=== PATIENT | male | born 1945 | race Caucasian/White ===

== ENCOUNTER 2018-09-07 21:45 | Observation (INO) | payer OTHER, SELFPAY ==
[2018-09-07] VITALS (24 sets, daily range): BP systolic 114–158; BP diastolic 63–79; PULSE 58–70; RESP 11–26; TEMP 36.8; O2SAT 95–98
--- NOTE | 2018-09-07 22:11 | ED.GENADUL_ITS ---
Discharge Plan Disposition Patient Disposition: [facility] INPATIENT Condition: Good Discharge Details Chief Complaint: Chest Pain Clinical Impression: Chest pain Reason For Visit: GERMAN Primary Care Provider: Jazzy Bhardwaj ED Provider: Jorge Rubio [place] Meds and New Rx's Prescriptions: No Action fluoxetine 20 MG capsule 20 mg PO QAM RF: 0 Prilosec OTC 20 MG tablet,delayed release (DR/EC) 20 mg PO DAILY RF: 0 atenolol 25 MG tablet 25 mg PO DAILY RF: 0 aspirin [Aspir-Low] 81 MG tablet,delayed release (DR/EC) 81 mg PO DAILY RF: 0 Medical Decision Making Patient presenting with left-sided chest pain that resolved with nitroglycerin. There was no radiation or associated symptoms. However, his HEART score is greater than 3 even without the initial troponin. He is currently pain-free. He took aspirin at home. His initial EKG is normal. Chest x-ray and laboratory studies ordered. Discussed with hospitalist for observation admission and stress testing tomorrow. Patient laboratory studies unremarkable other than a slight anemia and slight elevated glucose. First troponin is negative. Chest x-ray negative per my review as well as preliminary radiology read. Patient to be admitted for observation to the hospitalist overnight. Lab Data Lab results reviewed: Yes I reviewed the patient's lab results. ECG Data Attestation: I personally reviewed and interpreted this ECG (s) as follows: Interpretation: Normal sinus rhythm. Normal intervals and axis. Normal ST segments. HPI General Mode of arrival: EMS . Date/Time Provider Initiated Documentation: 09/07/18 22:02 . Limitations to Documentation: no limitations . Information obtained by: patient . HPI Narrative: Patient presents to ED by ambulance with complaint of chest pain. Patient describes a left-sided chest discomfort that started late this afternoon around 4 or 5:00. There is no radiation of the pain. There is no associated symptoms with the pain. He has no exertional component. He has been fine without any type of pain recently. He has no known coronary disease. He does have high blood pressure, diabetes, borderline cholesterol. He took aspirin and then took a second dose of aspirin but continued to have discomfort. By this evening he decided to call EMS since the pain did not resolve. He was given 3 sublingual nitroglycerin in total which resolved his pain completely. He arrives here pain-free without complaint. Related Data Home Medications Medication Instructions Recorded Confirmed aspirin [Aspir-Low] 81 mg PO DAILY 06/20/13 09/07/18 atenolol 25 mg PO DAILY 06/20/13 09/07/18 fluoxetine 20 mg PO QAM 06/20/13 09/07/18 omeprazole magnesium [PriLOSEC Otc] 20 mg PO DAILY 06/20/13 09/07/18 Allergies Allergy/AdvReac Type Severity Reaction Status Date / Time amoxicillin trihydrate Allergy Intermediate Hives Unverified 06/20/13 16:39 [From Augmentin] potassium clavulanate Allergy Intermediate Hives Unverified 06/20/13 16:39 [From Augmentin] lisinopril AdvReac Unverified 09/07/18 22:53 General Stated Complaint: Chest Pain LUCRECIA: 2 Review of Systems Constitutional Denies chills, Denies fever(s), Denies headache(s), Denies malaise and Denies weakness Eyes Denies change in vision, Denies eye discharge, Denies irritation and Denies eye pain ENT Denies headache(s) and Denies neck pain Cardiovascular Reports chest pain, Denies pedal edema, Denies edema, Denies leg edema, Denies lightheadedness, Denies palpitations and Denies dyspnea Respiratory Denies cough, Denies pain on inspiration and Denies dyspnea Gastrointestinal Denies abdominal pain, Denies diarrhea, Denies nausea and Denies vomiting Genitourinary Denies hematuria, Denies difficulty urinating, Denies dysuria, Denies urinary frequency and Denies urinary urgency Musculoskeletal Denies back pain, Denies myalgias, Denies arthralgias, Denies joint swelling, Denies neck pain and Denies numbness Integumentary/Breasts Denies erythema and Denies rash Neurologic Denies confusion, Denies headache(s), Denies numbness and Denies weakness Psychiatric Denies confusion Endocrine Denies palpitations [facility] Medical History Acquired deviated nasal septum (Chronic 09/24/14) Allergic rhinitis (Chronic 03/12/14) Allergic rhinitis due to other allergen (Chronic 04/09/14) Mass of neck (Resolved 08/28/13) Neoplasm of skin (Resolved 07/16/14) Postnasal drip (Chronic 03/12/14) Sensorineural hearing loss, bilateral (Chronic 07/08/15) Thyroid nodule (Inactive 08/28/13) Diabetes mellitus (Chronic) HTN (hypertension) (Chronic) Allergic rhinitis due to pollen (Inactive) Surgical History S/P cholecystectomy (Inactive) Social History Smoking/Tobacco Use Status: Never Exam Const General: cooperative, comfortable and no acute distress Orientation: alert and oriented x3 HENMT Head: normocephalic and atraumatic Mouth: moist mucous membranes Eyes Conjunctivae: conjunctivae normal Pupils: PERRL EOM: EOM intact bilaterally Neck Neck: full ROM, no lymphadenopathy, trachea midline and supple Chest Chest: normal palpation of entire chest wall Resp Effort & Inspection: normal respiratory effort Auscultation: clear to auscultation bilaterally Cardio Rate: regular rate Rhythm: regular rhythm Heart Sounds: S1 normal and S2 normal Pulses: normal peripheral pulses GI Inspection: non-distended Palpation: soft, not firm, no guarding and nontender Skin General skin exam: no erythema Rashes: no rashes Trauma: no lacerations or abrasions Other: warm and dry Neuro General: alert, oriented x3, no focal motor deficits and CN's II-XI intact bi laterally Cognition: normal cognition Speech: speech normal Sensory Exam: no sensory deficits noted Extrem General: normal to inspection, full ROM and no clubbing, cyanosis or edema Psych Appearance: grossly normal Mental Status: mental status grossly normal Affect: normal affect Attitude: cooperative Course Vital Signs Temperature 98.3 F 09/07/18 21:47 Pulse 65 09/07/18 21:47 Respiratory Rate 16 09/07/18 21:47 Blood Pressure 158/79 H 09/07/18 21:47 Pulse Oximetry 95 09/07/18 21:47 Temperature 98.3 F 09/07/18 21:47 Temperature Source Skin 09/07/18 21:47 Pulse 65 09/07/18 21:47 Respiratory Rate 16 09/07/18 21:47 Respiratory Effort Non-Labored 09/07/18 21:49 Blood Pressure 158/79 H 09/07/18 21:47 Blood Pressure Position Sitting 09/07/18 21:47 Pulse Oximetry 95 09/07/18 21:47 Oxygen Delivery Method Room Air 09/07/18 21:47 Oxygen Flow Rate 0 09/07/18 21:47
--- NOTE | 2018-09-07 22:11 | DI.RAD_ITS ---
SYMPTOM/DIAGNOSIS: CHEST PAIN PA AND LATERAL CHEST: The heart is normal in size. The lungs are clear. The mediastinal structures and pleura appear intact. CONCLUSION: Normal chest. No evidence of acute cardiopulmonary disease.
[2018-09-07 22:26] LABS: Abs Immature Grans 0.01 k/cumm (0.0-0.09); Absolute Basophil Count 0.03 k/cumm (0.0-0.2); Absolute Lymphocyte Count 2.71 k/cumm (1.2-3.4); Absolute Monocyte Count 0.73 k/cumm (0.11-0.7); Absolute Neutrophil Count 2.34 k/cumm (1.2-6.7); Basophils % 0.5; Eosinophils % 6.4; HGB 13.3 g/dL (13.5-17.5); Immature Grans % 0.2; Lymphocytes % 43.6; Mean Corp. HGB Concentration 34.1 g/dL (32.0-36.0); Mean Corpuscular Hemoglobin 30.6 pg (27.0-33.0); Mean Corpuscular Volume 89.9 fL (80-95); Mean Platelet Volume 9.3 fL (8.0-11.0); Monocytes % 11.7; Neutrophils % 37.6; Platelet Count 246 x1000/uL (130-400); RBC 4.34 m/cumm (4.50-6.00); RBC Distribution Width 12.8 % (11.8-14.1); White Blood Cell Count 6.22 k/cumm (4.4-10.8)
[2018-09-07 23:11] LABS: ALT 30 U/L (12-78); AST 17 U/L (15-37); Albumin 3.3 g/dL (3.4-5.0); Alkaline Phosphatase 102 U/L (46-116); Anion Gap 9.1 mmol/L (3-11); BUN 14 mg/dL (7-18); Bilirubin, Total 0.3 mg/dL (0.2-1.0); CO2 26.9 mmol/L (21.0-32.0); CREATININE 1.17 mg/dL (0.70-1.30); Calcium 8.5 mg/dL (8.5-10.1); Chloride 102 mmol/L (98-107); Glucose 158 mg/dL (70-100); Magnesium 1.9 mg/dL (1.8-2.4); Potassium 3.9 mmol/L (3.5-5.1); Sodium 138 mmol/L (136-145); Total Protein 6.7 g/dL (6.4-8.2); Troponin I 0.03 ng/mL (0.00-0.06)
--- NOTE | 2018-09-07 23:18 | DI.VRAD_ITS ---
EXAM: XR Chest, 2 Views EXAM DATE/TIME: 09/07/2018 10:23 PM CLINICAL HISTORY: 73 years old, male; Pain; Chest pain TECHNIQUE: XR of the chest, 2 views. COMPARISON: US AAA SCREENING 12/04/2016 6:12 PM FINDINGS: Lungs: Unremarkable. No consolidation. Pleural space: Unremarkable. No pleural effusion. No pneumothorax. Heart/Mediastinum: Unremarkable. No cardiomegaly. Upper abdomen: Prior cholecystectomy. Bones/joints: Thoracolumbar dextroscoliosis. IMPRESSION: No active pulmonary disease. Dictated and Authenticated by: Pritesh aSnz MD. Ordering:LAURA Patel MD
--- NOTE | 2018-09-07 23:50 | HPE_ITS ---
Date of service: 09/07/18 Time of Service: 23:35 Assessment and Plan (1) Chest pain: Current visit: Yes Status: Acute Chest pain occurred at rest. The chest pain resolved with 1 sublingual nitro given by EMS. Given his risk factors of hypertension diabetes will admit to observation status and trend his troponins. Overall reassuring EKG and initial troponin. PRN sublingual nitro (2) Diabetes mellitus: Current visit: Yes Status: Chronic New diagnosis of diabetes, currently on no meds. Will check fingerstick blood sugars and provide correction coverage. (3) HTN (hypertension): Current visit: Yes Status: Chronic Blood pressure is currently stable continue present meds (4) Obstructive sleep apnea: Current visit: Yes Status: Chronic On nocturnal CPAP. Will provide CPAP at 12 cm of water. (5) Discharge planning issues: Current visit: Yes Status: Acute Admit to observation status. He is a full code. History of Present Illness Chief Complaint: Chest pain rule out NH Narrative: This is a 73-year-old man who developed some substernal chest pain around 5 PM this evening. It was just prior to his evening meal he went on to have his supper and the pain did not get better. He tried taking 2 baby aspirin without any relief. At around 8 PM he took 2 more baby aspirin again with no relief. He announced to his at around 9 PM that he did not feel well and it was suggested he take an ambulance to the emergency room. In the emergency room he was pain-free, his EKG showed no acute changes, his initial troponin was negative. He is admitted for further rule out of NH. He has no prior history of coronary disease. He was recently diagnosed with type 2 diabetes. He has a history of hypercholesterolemia. Review of Systems Review of Systems Generally healthy and active, no history of coronary disease Constitutional Denies excessive sweating, Denies frequent falls and Denies headache(s) ENT Denies headache(s) and Denies throat swelling Cardiovascular Reports chest pain (No prior history prior to tonight), Denies edema, Denies dyspnea, Denies dyspnea on exertion and Denies orthopnea Respiratory Denies dyspnea and Denies dyspnea on exertion Gastrointestinal Denies diarrhea, Denies nausea and Denies vomiting Genitourinary Denies urinary frequency and Denies urinary incontinence Musculoskeletal Denies back pain and Denies deformity Integumentary/Breasts Denies rash, Denies sores and Denies wounds Neurologic Denies confusion, Denies frequent falls and Denies headache(s) Psychiatric Denies confusion, Denies depression and Denies suicidal ideation Endocrine Denies excessive sweating Hematologic/Lymphatic Denies easy bleeding and Denies easy bruising Allergic/Immunologic Denies urticaria and Denies throat swelling [facility] Medical History Chest pain (Acute) Obstructive sleep apnea (Chronic) Diabetes mellitus (Chronic) HTN (hypertension) (Chronic) Acquired deviated nasal septum (Chronic 09/24/14) Allergic rhinitis (Chronic 03/12/14) Allergic rhinitis due to other allergen (Chronic 04/09/14) Mass of neck (Resolved 08/28/13) Neoplasm of skin (Resolved 07/16/14) Postnasal drip (Chronic 03/12/14) Sensorineural hearing loss, bilateral (Chronic 07/08/15) Thyroid nodule (Inactive 08/28/13) Allergic rhinitis due to pollen (Inactive) Surgical History H/O umbilical hernia repair (Acute) History of tonsillectomy (Chronic) S/P cholecystectomy (Inactive) Social History household members: spouse current occupational status: retired current occupation: Part-time work at a [email or web address] station Smoking/Tobacco Use Status: Never alcohol intake: current alcohol intake frequency: holidays/special occasions only substance use type: does not use Meds Home Medications Medication Instructions Recorded Confirmed Type aspirin [Aspir-Low] 81 mg PO DAILY 06/20/13 09/07/18 History atenolol 25 mg PO DAILY 06/20/13 09/07/18 History fluoxetine 20 mg PO QAM 06/20/13 09/07/18 History omeprazole magnesium [PriLOSEC Otc] 20 mg PO DAILY 06/20/13 09/07/18 History Allergies Allergy/AdvReac Type Severity Reaction Status Date / Time amoxicillin trihydrate Allergy Intermediate Hives Unverified 06/20/13 16:39 [From Augmentin] potassium clavulanate Allergy Intermediate Hives Unverified 06/20/13 16:39 [From Augmentin] lisinopril AdvReac Unverified 09/07/18 22:53 Exam Const General: cooperative, comfortable, no acute distress, well developed and well groomed Orientation: alert, awake and oriented x3 HENMT Head: normal to inspection Ears: hearing grossly abnormal bilaterally (Bilateral sensorineural hearing deficits) General nose exam: external nose normal Face and sinus: face symmetric Mouth: oropharynx normal Eyes General: appearance normal, both eyes and all related structures Neck Neck: normal visual inspection and no JVD Thyroid: symmetrical Carotids: normal carotid upstroke Lymphatic: no lymphadenopathy noted Chest Chest: normal inspection of the chest Resp Effort & Inspection: normal respiratory effort Auscultation: clear to auscultation bilaterally Cardio Jugular venous pressure: no JVD Rate: regular rate Rhythm: regular rhythm Heart Sounds: S1 normal, S2 normal and no murmurs GI Inspection: normal to inspection Palpation: soft, no hepatosplenomegaly and nontender Back/Spine/Pelvis Back: no CVA tenderness Cervical Spine: normal cervical lordosis Thoracic/Lumbar Spine: thoracic and lumbar spine normal to inspection Skin General skin exam: no rashes or lesions noted Wounds: no wounds Neuro General: alert, awake, oriented x3, moves all extremities and no focal motor deficits Cranial Nerves: CN's II-XI intact bilaterally Cognition: normal cognition Speech: speech normal Extrem General: normal to inspection and no clubbing, cyanosis or edema Psych Appearance: grossly normal Mental Status: mental status grossly normal Speech and Movement: speech and movement normal Mood: congruent mood Affect: normal affect Attitude: cooperative Thought Process: normal Thought Content: normal Insight: insight good Results Imaging Chest x-ray: image reviewed (Appears normal) EKG: image reviewed (Sinus rhythm at [address] to T changes biphasic T wave in 3) Labs : 09/07/18 22:05 09/07/18 22:05 Laboratory Results - last 24 hr 09/07/18 09/07/18 22:05 22:05 WBC 6.22 RBC 4.34 L Hgb 13.3 L Hct 39.0 L MCV 89.9 MCH 30.6 MCHC 34.1 RDW 12.8 Plt Count 246 MPV 9.3 Immature Gran % 0.2 Neutrophils % 37.6 Lymphocytes % 43.6 Monocytes % 11.7 Eosinophils % 6.4 Basophils % 0.5 Absolute Neutrophils 2.34 Absolute Lymphocytes 2.71 Absolute Monocytes 0.73 H Absolute Eosinophils 0.40 Absolute Basophils 0.03 Sodium 138 Potassium 3.9 Chloride 102 Carbon Dioxide 26.9 Anion Gap 9.1 BUN 14 Creatinine 1.17 Estimated GFR/1.73 m2 >= 60.00 Glucose 158 H Calcium 8.5 Magnesium 1.9 Total Bilirubin 0.3 AST 17 ALT 30 Alkaline Phosphatase 102 Troponin I 0.03 Total Protein 6.7 Albumin 3.3 L Last Vital Signs Temp 36.8 C 09/07/18 21:47 Pulse 68 09/07/18 22:45 Resp 16 09/07/18 22:55 BP 122/71 09/07/18 22:45 Pulse Ox 97 09/07/18 22:45
[2018-09-08] VITALS (16 sets, daily range): BP systolic 119–157; BP diastolic 64–87; PULSE 59–76; RESP 14–18; TEMP 36.8–37.9; O2SAT 94–97
[2018-09-08 02:57] LABS: Troponin I 0.02 ng/mL (0.00-0.06)
[2018-09-08 07:07] LABS: Abs Immature Grans 0.01 k/cumm (0.0-0.09); Absolute Basophil Count 0.03 k/cumm (0.0-0.2); Absolute Eosinophil Count 0.14 k/cumm (0.0-0.7); Absolute Lymphocyte Count 2.23 k/cumm (1.2-3.4); Absolute Neutrophil Count 4.82 k/cumm (1.2-6.7); Basophils % 0.4; Eosinophils % 1.8; HCT 39.4 % (40.0-50.0); HGB 13.4 g/dL (13.5-17.5); Immature Grans % 0.1; Lymphocytes % 28.1; Mean Corpuscular Hemoglobin 30.7 pg (27.0-33.0); Mean Corpuscular Volume 90.4 fL (80-95); Mean Platelet Volume 9.6 fL (8.0-11.0); Monocytes % 8.8; Neutrophils % 60.8; Platelet Count 231 x1000/uL (130-400); RBC 4.36 m/cumm (4.50-6.00); RBC Distribution Width 12.9 % (11.8-14.1); White Blood Cell Count 7.93 k/cumm (4.4-10.8)
[2018-09-08 07:21] LABS: Anion Gap 9.6 mmol/L (3-11); BUN 16 mg/dL (7-18); CO2 26.4 mmol/L (21.0-32.0); CREATININE 0.88 mg/dL (0.70-1.30); Calcium 8.6 mg/dL (8.5-10.1); Chloride 104 mmol/L (98-107); Glucose 133 mg/dL (70-100); Sodium 140 mmol/L (136-145)
[2018-09-08 07:30] LABS: Troponin I 0.02 ng/mL (0.00-0.06)
[2018-09-08 07:37] LABS: Hemoglobin A1C 6.9 % (4.5-6.2)
[2018-09-08] MEDS: Enoxaparin 40 MG/0.4 ML SYR SC (09:23)
[2018-09-08] MEDS: Aspirin E.C. 81 MG TABEC PO (09:24)
[2018-09-08] MEDS: Atenolol 25 MG TAB PO (09:24)
[2018-09-08] MEDS: FLUoxetine 20 MG CAP PO (09:24)
[2018-09-08] MEDS: Omeprazole 20 MG CAPCR PO (09:25)
[2018-09-08] MEDS: Acetaminophen 325 MG TAB PO (09:32)
[2018-09-08] MEDS: Mylanta Suspension 30 ML CUP PO (10:13)
--- NOTE | 2018-09-08 12:00 | HOME_ITS ---
Home Ventilator Equipment Home care company [employer] Reason: Obstructive Sleep Apnea Make: ResMed Model: AirSense 10 Mask type: Face mask Mask size: Large Mode: Settings: CPAP 12 Oxygen bleed in (lpm): 0 Condition: Date last checked: Year of last sleep study: Compliance Comments:
--- NOTE | 2018-09-08 13:05 | W.PM.PROGNOT ---
Date of Service Date of service: 09/08/18 Time of Service: 13:05 Assessment and Plan (1) Chest pain: Current visit: Yes Status: Acute Troponins negative. EKG normal, without ST changes. Given history of DM and HTN with chest discomfort, plan to stress test tomorrow to further rule out CAD. Lipid panel with morning labs. (2) Diabetes mellitus: Current visit: Yes Status: Chronic Blood sugar has been in acceptable range. Continue short acting insulin per sliding scale. Continue to hold metfromin while hospitalized. (3) HTN (hypertension): Current visit: Yes Status: Chronic Continue home dose BB, hold for stress test. Continue to monitor blood pressure. (4) DVT prophylaxis: Current visit: Yes Status: Acute Subcutaneous lovenox. (5) Discharge planning issues: Current visit: Yes Status: Acute He is a FULL code. This case was discussed with Dr. Boucher who is in agreement. Subjective Interval history since last seen: Mr. Nj is a very pleasant 73 year old man with a past medical history significant for HTN, non-insulin dependent diabetes and SANDRO, who presented to the ED yesterday via EMS with reports of chest pain that was relieved by nitro. His troponins have been negative. EKG showed normal sinus rhythm, normal intervals and axis, normal ST segments. This morning he reports intermittent discomfort in his left chest. He also notes that his anxiety level is high. He has no family history of UT, he has never been a smoker, he is fairly active around the house but does not regularly exercise. He denies any shortness of breath, cough, or wheeze. He did fall yesterday, onto his left shoulder, although he cannot reproduce the chest discomfort with palpation or manipulation of his shoulder/arm. Given his risk factors, including HTN and DM, will plan to stress test him tomorrow. Exam Narrative Exam Narrative: General: Awake, alert and oriented. Pleasant and cooperative, sitting in bed in no acute distress. HEENT: normocephalic, atraumatic, pupils equal and round, mucous membranes moist. Neck: supple, no JVD. Cardiovascular: heart has regular rate and rhythm, no murmur, gallop or rub. Respiratory: respirations even and unlabored, lungs clear to auscultation throught. GI: abdomen soft, nontender, nondistended, with normoactive bowel sounds throughout. Extremities: well perfused without clubbing, cyanosis or edema. Objective Objective Clinical Data: Abnormal lab results 09/07/18 09/07/18 09/08/18 Range/Units 22:05 22:05 06:20 RBC 4.34 L (4.50-6.00) m/cumm Hgb 13.3 L (13.5-17.5) g/dL Hct 39.0 L (40.0-50.0) % Absolute Monocytes 0.73 H (0.11-0.7) k/cumm Glucose 158 H 133 H (70-100) mg/dL Hemoglobin A1c (4.5-6.2) % Albumin 3.3 L (3.4-5.0) g/dL 09/08/18 09/08/18 Range/Units 06:20 06:20 RBC 4.36 L (4.50-6.00) m/cumm Hgb 13.4 L (13.5-17.5) g/dL Hct 39.4 L (40.0-50.0) % Absolute Monocytes (0.11-0.7) k/cumm Glucose (70-100) mg/dL Hemoglobin A1c 6.9 H (4.5-6.2) % Albumin (3.4-5.0) g/dL Vital Signs Temperature 37.2 C 09/08/18 11:47 Temperature Source Tympanic 09/08/18 11:47 Pulse 69 09/08/18 11:47 Pulse Rhythm Regular 09/08/18 04:06 Pulse 69 09/08/18 00:01 Respiratory Rate 16 09/08/18 11:47 Respiratory Effort 09/08/18 04:06 Respiratory Depth Normal 09/08/18 04:06 Respiratory Pattern Normal 09/08/18 04:06 Blood Pressure 157/79 H 09/08/18 11:47 Blood Pressure Mean 76 09/08/18 00:00 Blood Pressure Position Sitting 09/07/18 21:47 Pulse Oximetry 97 09/08/18 11:47 Oxygen Delivery Method Room Air 09/08/18 11:47 Oxygen Flow Rate 0 09/08/18 11:47 Pain Level 1 09/08/18 09:32 Intake & Output 09/07/18 09/08/18 09/08/18 23:59 11:59 23:59 Intake Total 480 / 480 Output Total 100 / 100 Balance 380 / 380 Weight 70.307 kg 70.307 kg Intake: Oral 480 / 480 Output: Urine 100 / 100 Other: Urine Color Yellow Urine Appearance Clear Urine Odor Normal Voiding Methods Urinal Laboratory Results WBC 7.93 k/cumm (4.4-10.8) 09/08/18 06:20 RBC 4.36 m/cumm (4.50-6.00) L 09/08/18 06:20 Hgb 13.4 g/dL (13.5-17.5) L 09/08/18 06:20 Hct 39.4 % (40.0-50.0) L 09/08/18 06:20 MCV 90.4 fL (80-95) 09/08/18 06:20 MCH 30.7 pg (27.0-33.0) 09/08/18 06:20 MCHC 34.0 g/dL (32.0-36.0) 09/08/18 06:20 RDW 12.9 % (11.8-14.1) 09/08/18 06:20 Plt Count 231 x1000/uL (130-400) 09/08/18 06:20 MPV 9.6 fL (8.0-11.0) 09/08/18 06:20 Immature Gran % 0.1 09/08/18 06:20 Neutrophils % 60.8 09/08/18 06:20 Lymphocytes % 28.1 09/08/18 06:20 Monocytes % 8.8 09/08/18 06:20 Eosinophils % 1.8 09/08/18 06:20 Basophils % 0.4 09/08/18 06:20 Absolute Neutrophils 4.82 k/cumm (1.2-6.7) 09/08/18 06:20 Absolute Lymphocytes 2.23 k/cumm (1.2-3.4) 09/08/18 06:20 Absolute Monocytes 0.70 k/cumm (0.11-0.7) 09/08/18 06:20 Absolute Eosinophils 0.14 k/cumm (0.0-0.7) 09/08/18 06:20 Absolute Basophils 0.03 k/cumm (0.0-0.2) 09/08/18 06:20 Sodium 140 mmol/L (136-145) 09/08/18 06:20 Potassium 4.0 mmol/L (3.5-5.1) 09/08/18 06:20 Chloride 104 mmol/L (98-107) 09/08/18 06:20 Carbon Dioxide 26.4 mmol/L (21.0-32.0) 09/08/18 06:20 Anion Gap 9.6 mmol/L (3-11) 09/08/18 06:20 BUN 16 mg/dL (7-18) 09/08/18 06:20 Creatinine 0.88 mg/dL (0.70-1.30) 09/08/18 06:20 Estimated GFR/1.73 m2 >= 60.00 (mL/min/1.73m2) 09/08/18 06:20 Glucose 133 mg/dL (70-100) H 09/08/18 06:20 Hemoglobin A1c 6.9 % (4.5-6.2) H 09/08/18 06:20 Calcium 8.6 mg/dL (8.5-10.1) 09/08/18 06:20 Magnesium 1.9 mg/dL (1.8-2.4) 09/07/18 22:05 Total Bilirubin 0.3 mg/dL (0.2-1.0) 09/07/18 22:05 AST 17 U/L (15-37) 09/07/18 22:05 ALT 30 U/L (12-78) 09/07/18 22:05 Alkaline Phosphatase 102 U/L (46-116) 09/07/18 22:05 Troponin I 0.02 ng/mL (0.00-0.06) 09/08/18 06:20 Total Protein 6.7 g/dL (6.4-8.2) 09/07/18 22:05 Albumin 3.3 g/dL (3.4-5.0) L 09/07/18 22:05
--- NOTE | 2018-09-08 14:04 | CHAPLAIN ---
Jorge was resting in bed when I visited. He remembered me, and other staff, from when his was a patient here, over a year ago after having a stroke. Jorge said it has been difficult to tell what his chest discomfort is about, but he is having several tests today. He had similar pain like this 30 years ago, he said. He wondered if some anxiety could be a cause. We talked about how connected our bodies are our emotions, even when we don't realize it.
--- NOTE | 2018-09-08 15:05 | PHARADMIT ---
Admission Pharmacy Clinical Review chest pain, rule out AR Code Status Full Code Current Weight 70.307 kg Renally Cleared and Narrow Therapeutic Index Meds Crcl ~66.00 mL/min current meds okay QTc Value / Action Taken QTc 414 BP Control, Fever BP 157/79 afebrile Electrolytes reviewed within normal limits DVT Prophylaxis enoxaparin Opiate Usage / Scheduled Bowel Regimen Ordered no/prn Plt/SCr for Heparin / Enoxaparin plt 231 SCr 0.88 INR for Warfarin n/a H/H stable, WBC/Bands h/h 13.4/39.4 wbc 7.93 Antibiotic appropriateness n/a Cultures and Sensitivities n/a Surgical ABX d/c within 24 hr n/a DM control / Insulin Dosing BG 133 A1c 6.9 sliding scale aspart Heart Failure (Check EF%) (NILO's, B-Block, Diuretics) atenolol (on hold due to stress test) IV to PO Switch n/a Home Meds Reviewed yes Home Meds Not Ordered all are ordered Comments stress test tomorrow
--- NOTE | 2018-09-08 17:04 | PDOC.ERCMIN ---
Care Management Initial Assess REASON FOR HOSPITALIZATION:: Chest Pain R/O AR PAST MEDICAL HISTORY/PAST SURGICAL HISTORY:: Chest pain, Obstructive sleep apnea, Diabetes mellitus, HTN, Acquired deviated nasal septum, Allergic rhinitis, Allergic rhinitis due to other allergen, Mass of neck, Neoplasm of skin, Postnasal drip, Sensorineural hearing loss, bilateral, Thyroid nodule, Allergic rhinitis due to pollen PREVIOUS FUNCTIONAL STATUS/SOCIAL/FAMILY SUPPORTS:: Jorge reports moving to [place] with his after retiring from the [employer] in [place]. He states no one was retiring here, so we did Shortly therafter, his two sons and daughter followed and had eight grandchildren in a short amount of time; per Jorge's report. The couple have resdied in [place] for about ten years after relocating from their original landing place in [place] in 1995. Jorge reports a healthy support network of family and friends and shares enjoying his fpc years very much. He is independent with all ADLs in the community. The couple enjoys visiting his KATHY in [place] during the winter monthes. CURRENT FUNCTIONAL STATUS:: Jorge is lying in bed when CM meets with him; he is forthcoming with information and pleasant in interaction. ADVANCE DIRECTIVES:: On file at [facility]. Has patient been provided with information about the portal?: Yes Did the patient sign up for the portal?: Yes ([email or web address] CODE STATUS:: Full Code INSURANCE COVERAGE / FINANCIAL ISSUES:: [facility] CURRENT HOME/COMMUNITY SERVICES/EQUIPMENT:: CPAP machine-[employer] PRIMARY CARE PHYSICIAN:: Hayder Bhardwaj POTENTIAL DISCHARGE NEEDS:: Follow up appointments. PATIENT/FAMILY EDUCATION NEEDS:: Review of instructions, discuss Ask Me Three self care needs upon discharge. ANTICIPATED BARRIERS TO DISCHARGE:: None identified at this time. TRANSPORTATION:: Via private vehicle with his . PLAN:: Jorge will continue to be monitored at this time, he will have a stress test to inform discharge planning needs. CM will continue to follow.
--- NOTE | 2018-09-08 17:29 | INITIAL_ITS ---
Care Management Initial Assess REASON FOR HOSPITALIZATION:: Chest Pain R/O TN PAST MEDICAL HISTORY/PAST SURGICAL HISTORY:: Chest pain, Obstructive sleep apnea, Diabetes mellitus, HTN, Acquired deviated nasal septum, Allergic rhinitis, Allergic rhinitis due to other allergen, Mass of neck, Neoplasm of skin, Postnasal drip, Sensorineural hearing loss, bilateral, Thyroid nodule, Allergic rhinitis due to pollen PREVIOUS FUNCTIONAL STATUS/SOCIAL/FAMILY SUPPORTS:: Jorge reports moving to [place] with his after retiring from the [employer] in [place]. He states no one was retiring here, so we did Shortly therafter, his two sons and daughter followed and had eight grandchildren in a short amount of time; per Jorge's report. The couple have resdied in [place] for about ten years after relocating from their original landing place in [place] in 1995. Jorge reports a healthy support network of family and friends and shares enjoying his intermediate years very much. He is independent with all ADLs in the community. The couple enjoys visiting his KATHY in [place] during the winter monthes. CURRENT FUNCTIONAL STATUS:: Jorge is lying in bed when CM meets with him; he is forthcoming with information and pleasant in interaction. ADVANCE DIRECTIVES:: On file at [facility]. Has patient been provided with information about the portal?: Yes Did the patient sign up for the portal?: Yes ([email or web address] CODE STATUS:: Full Code INSURANCE COVERAGE / FINANCIAL ISSUES:: [facility] CURRENT HOME/COMMUNITY SERVICES/EQUIPMENT:: CPAP machine-[employer]ila PRIMARY CARE PHYSICIAN:: Hayder Bhardwaj POTENTIAL DISCHARGE NEEDS:: Follow up appointments. PATIENT/FAMILY EDUCATION NEEDS:: Review of instructions, discuss Ask Me Three self care needs upon discharge. ANTICIPATED BARRIERS TO DISCHARGE:: None identified at this time. TRANSPORTATION:: Via private vehicle with his . PLAN:: Jorge will continue to be monitored at this time, he will have a stress test to inform discharge planning needs. CM will continue to follow.
[2018-09-09 03:45] VITALS: BP 140/75; PULSE 78; RESP 18; TEMP 37; O2SAT 97
[2018-09-09 06:13] LABS: Cholesterol 207 mg/dL (50-200); HDL Cholesterol 43 mg/dL (40-60); LDL CHOLESTEROL 138 mg/dL (<100); Triglyceride 138 mg/dL (30-150)
[2018-09-09 07:01] VITALS: PULSE 64
[2018-09-09 07:40] VITALS: BP 156/80; PULSE 71; RESP 18; TEMP 36.2; O2SAT 96
[2018-09-09] MEDS: FLUoxetine 20 MG CAP PO (08:33)
[2018-09-09] MEDS: Enoxaparin 40 MG/0.4 ML SYR SC (08:33)
[2018-09-09] MEDS: Aspirin E.C. 81 MG TABEC PO (08:33)
[2018-09-09] MEDS: Omeprazole 20 MG CAPCR PO ×2 (08:33→11:24)
[2018-09-09 11:35] VITALS: BP 165/78; PULSE 76; RESP 18; TEMP 36.6; O2SAT 96
--- NOTE | 2018-09-09 11:57 | W.PM.DS.N ---
Date of service: 09/09/18 Time of Service: 11:57 DS: Diagnosis Discharge Diagnosis (1) Chest pain: Status: Acute (2) Diabetes mellitus: Status: Chronic (3) HTN (hypertension): Status: Chronic Discharge Plan Disposition Patient Disposition: HOME Condition: Good Discharge Details Reason For Visit: CHEST PAIN RULE OUT MA Admit Date/Time: 09/07/18 23:26 Admit Provider: Kris Roberts Attending Provider: Kris Roberts Primary Care Provider: Jazzy Bhardwaj [facility] Hospital Course: Mr. Nj is a very pleasant 73 year old man with a past medical history significant for HTN, non-insulin dependent diabetes, hyperlipidemia and SANDRO (wears CPAP), who presented to the ED on 09/07/18 with reports of chest pain. He took 2 Aspirin 81 mg when it first began, then took 2 more Aspirin 81 mg a few hours later with no relief. At that point EMS was notified and he was transported to the ED. He received nitroglycerin en route to the ED which provided relief. He remained pain-free while in the ED. His troponins were 0.03-0.02-0.02. His EKG revealed NSR, normal intervals and axis. Normal ST segments as interpreted by Dr. Rubio. Given his risk factors, including HTN, DM (hgb A1c 6.9), hyperlipidemia he was admitted to the med/surg floor on observation and monitoring on telemetry. Telemetry revealed NSR with heart rates 60-80s. He was scheduled for a Cardiac stress test on the day of discharge, however, Cardiology was not available necessitating the cancellation of this test. He will be discharged home with follow up stress test as an outpatient in the near future. Of note, he does recall falling on his left shoulder on the day prior to admission. The pain, however, does not appear to be reproducible on palpation. He also reports that he is anxious at times and feels that his anxiety about the pain seems to make it worse. He has a history of GERD and at one point reported left chest discomfort for which mylanta was given with resolution of the pain. He has experienced some brief chest discomforts but no sustained periods of chest pain while he has been here on observation. His PPI dose was increased. His lipids were noted to be elevated with total cholesterol of 207, LDL of 138, his triglycerides were normal at 138, HDL normal at 43. His 10-year risk of heart disease or stroke is high at 55.4% based on his age and risk factors. He is discharged home on a moderate intensity statin. He is encouraged to make lifestyle modifications to reduce his cardiovascular risk. He will follow up with his PCP as scheduled. Home Meds and New Rx's Prescriptions: New acetaminophen [Tylenol] 325 mg Tablet 650 mg PO Q6H PRN PRNQty: 0 RF: 0 nitroglycerin [Nitrostat] 0.4 mg Tablet, Sublingual 0.4 mg Sublingual Q5 MIN PRN X3 PRN (Reason: chest pain) Qty: 3 RF: 0 alum-mag hydroxide-simeth [Mag-Al Plus] 200-200-20 mg/5 mL Suspension 30 ml PO Q2H PRN PRNQty: 0 RF: 0 omeprazole 40 mg capsule,delayed release(DR/EC) 40 mg PO DAILY Qty: 30 RF: 0 atorvastatin 20 mg tablet 20 mg PO QPM Qty: 30 RF: 0 metformin 1,000 mg tablet 1,000 mg PO DAILY Qty: 1 RF: 0 Continued fluoxetine 20 MG capsule 20 mg PO QAM RF: 0 atenolol 25 MG tablet 25 mg PO DAILY RF: 0 aspirin [Aspir-Low] 81 MG tablet,delayed release (DR/EC) 81 mg PO DAILY RF: 0 Discontinued Prilosec OTC 20 MG tablet,delayed release (DR/EC) 20 mg PO DAILY RF: 0 Discharge Instructions Instructions: Chest Pain (DC), Gastroesophageal Reflux Disease (DC) Additional Instructions: Your Omeprazole dose has been increased. Continue your usual Metformin dose. You have a new prescription for nitro to be used as needed for chest pain. Prior to taking a nitro, try resting, relaxation, treating acid reflux (things that may have helped here at the hospital). You will have a stress test as an outpatient. Take it easy at home, no strenuous activity. Atorvastatin has been added for elevated cholesterol and to help reduce your stroke and cardiovascular risk. Take care!! Stand Alone Forms: Nursing Discharge Form Referrals: Carolina Lorenzana [ [facility] STAFF PHYSICIAN] - 09/23/18 10:55 am Activity:: rest, no strenuous activity. Equipment/Supplies:: No Equipment Needed Diet:: As Tolerated Discharge Orders Discharge Orders: Discharge Order (Routine); Ordered 09/09/18 Ordered By: Sara Alvarado Other Ambulatory Orders: NM MPI rest & stress grp (Routine) Location: Determined by Patient Ordered By: Sara Alvarado Exam Narrative Exam Narrative: General: Awake, alert and oriented. Pleasant and cooperative, sitting in bed in no acute distress. HEENT: normocephalic, atraumatic, pupils equal and round, mucous membranes moist. Neck: supple, no JVD. Cardiovascular: heart has regular rate and rhythm, no murmur, gallop or rub. Respiratory: respirations even and unlabored, lungs clear to auscultation throughout. GI: abdomen soft, nontender, nondistended, with normoactive bowel sounds throughout. Extremities: well perfused without clubbing, cyanosis or edema. DS: Data Vitals/I&O Vitals and I&O: Vital Signs Temperature 36.2 C L 09/09/18 07:40 Temperature Source Tympanic 09/09/18 07:40 Pulse 71 09/09/18 07:40 Pulse Rhythm Regular 09/09/18 08:10 Pulse 69 09/08/18 00:01 Respiratory Rate 18 09/09/18 07:40 Respiratory Effort Non-Labored 09/09/18 08:10 Respiratory Depth Normal 09/09/18 08:10 Respiratory Pattern Normal 09/09/18 08:10 Blood Pressure 156/80 H 09/09/18 07:40 Blood Pressure Mean 76 09/08/18 00:00 Blood Pressure Position Sitting 09/07/18 21:47 Pulse Oximetry 96 09/09/18 07:40 Oxygen Delivery Method Room Air 09/09/18 07:40 Oxygen Flow Rate 0 09/09/18 07:40 Pain Level 0 09/09/18 07:40 Comment 09/09/18 03:45 Intake & Output 09/08/18 09/08/18 09/09/18 11:59 23:59 11:59 Intake Total 480 / 970 490 / 970 120 / 120 Output Total 700 / 700 1700 / 1700 Balance -220 / 270 490 / 270 -1580 / -1580 Weight 70.307 kg 71.214 kg Intake: Oral 480 / 970 490 / 970 120 / 120 Output: Urine 700 / 700 1700 / 1700 Other: Urine Color Yellow Light Gita Urine Appearance Clear Clear Clear Urine Odor Normal Stool Size Moderate Stool Characteristics Formed Voiding Methods Urinal Toilet Urinal Completed studies during hospitalization [Text1]: 09/07/18: PA AND LATERAL CHEST: The heart is normal in size. The lungs are clear. The mediastinal structures and pleura appear intact. CONCLUSION: Normal chest. No evidence of acute cardiopulmonary disease. Labs on day of discharge: Labs from last 24 hours 09/09/18 05:47 Triglycerides 138 Total Cholesterol 207 H LDL Cholesterol Direct 138 H HDL Cholesterol 43 PFSH Medical History Chest pain (Acute) Obstructive sleep apnea (Chronic) Diabetes mellitus (Chronic) HTN (hypertension) (Chronic) Acquired deviated nasal septum (Chronic 09/24/14) Allergic rhinitis (Chronic 03/12/14) Allergic rhinitis due to other allergen (Chronic 04/09/14) Mass of neck (Resolved 08/28/13) Neoplasm of skin (Resolved 07/16/14) Postnasal drip (Chronic 03/12/14) Sensorineural hearing loss, bilateral (Chronic 07/08/15) Thyroid nodule (Inactive 08/28/13) Allergic rhinitis due to pollen (Inactive) Surgical History H/O umbilical hernia repair (Acute) History of tonsillectomy (Chronic) S/P cholecystectomy (Inactive) Social History household members: spouse current occupational status: retired current occupation: Part-time work at a [employer] Smoking/Tobacco Use Status: Never alcohol intake: current alcohol intake frequency: holidays/special occasions only substance use type: does not use
--- NOTE | 2018-09-09 12:18 | DSE_ITS ---
Date of service: 09/09/18 Time of Service: 11:57 DS: Diagnosis Discharge Diagnosis (1) Chest pain: Status: Acute (2) Diabetes mellitus: Status: Chronic (3) HTN (hypertension): Status: Chronic Discharge Plan Disposition Patient Disposition: HOME Condition: Good Discharge Details Reason For Visit: CHEST PAIN RULE OUT TN Admit Date/Time: 09/07/18 23:26 Admit Provider: rKis Roberts Attending Provider: Kris Roberts Primary Care Provider: Jazzy Bhardwaj [facility] Course Hospital Course: Mr. Nj is a very pleasant 73 year old man with a past medical history significant for HTN, non-insulin dependent diabetes, hyperlipidemia and SANDRO (wea rs CPAP), who presented to the ED on 09/07/18 with reports of chest pain. He took 2 Aspirin 81 mg when it first began, then took 2 more Aspirin 81 mg a few hours later with no relief. At that point EMS was notified and he was transported to the ED. He received nitroglycerin en route to the ED which provided relief. He remained pain-free while in the ED. His troponins were 0.03-0.02-0.02. His EKG revealed NSR, normal intervals and axis. Normal ST segments as interpreted by Dr. Rubio. Given his risk factors, including HTN, DM (hgb A1c 6.9), hyperlipidemia he was admitted to the med/surg floor on observation and monitoring on telemetry. Telemetry revealed NSR with heart rates 60-80s. He was scheduled for a Cardiac stress test on the day of discharge, however, Cardiology was not available n ecessitating the cancellation of this test. He will be discharged home with follow up stress test as an outpatient in the near future. Of note, he does recall falling on his left shoulder on the day prior to admission. The pain, however, does not appear to be reproducible on palpation. He also reports that he is anxious at times and feels that his anxiety about the pain seems to make it worse. He has a history of GERD and at one point reported left chest discomfort for which mylanta was given with resolution of the pain. He has experienced some brief chest discomforts but no sustained periods of chest pain while he has been here on observation. His PPI dose was increased. His lipids were noted to be elevated with total cholesterol of 207, LDL of 138, his triglycerides were normal at 138, HDL normal at 43. His 10-year risk of heart disease or stroke is high at 55.4% based on his age and risk factors. He is discharged home on a moderate intensity statin. He is encouraged to make lifestyle modifications to reduce his cardiovascular risk. He will follow up with his PCP as scheduled. Home Meds and New Rx's Prescriptions: New acetaminophen [Tylenol] 325 mg Tablet 650 mg PO Q6H PRN PRNQty: 0 RF: 0 nitroglycerin [Nitrostat] 0.4 mg Tablet, Sublingual 0.4 mg Sublingual Q5 MIN PRN X3 PRN (Reason: chest pain) Qty: 3 RF: 0 alum-mag hydroxide-simeth [Mag-Al Plus] 200-200-20 mg/5 mL Suspension 30 ml PO Q2H PRN PRNQty: 0 RF: 0 omeprazole 40 mg capsule,delayed release(DR/EC) 40 mg PO DAILY Qty: 30 RF: 0 atorvastatin 20 mg tablet 20 mg PO QPM Qty: 30 RF: 0 metformin 1,000 mg tablet 1,000 mg PO DAILY Qty: 1 RF: 0 Continued fluoxetine 20 MG capsule 20 mg PO QAM RF: 0 atenolol 25 MG tablet 25 mg PO DAILY RF: 0 aspirin [Aspir-Low] 81 MG tablet,delayed release (DR/EC) 81 mg PO DAILY RF: 0 Discontinued Prilosec OTC 20 MG tablet,delayed release (DR/EC) 20 mg PO DAILY RF: 0 Discharge Instructions Instructions: Chest Pain (DC), Gastroesophageal Reflux Disease (DC) Additional Instructions: Your Omeprazole dose has been increased. Continue your usual Metformin dose. You have a new prescription for nitro to be used as needed for chest pain. Prior to taking a nitro, try resting, relaxation, treating acid reflux (things that may have helped here at the hospital). You will have a stress test as an outpatient. Take it easy at home, no strenuous activity. Atorvastatin has been added for elevated cholesterol and to help reduce your stroke and cardiovascular risk. Take care!! Stand Alone Forms: Nursing Discharge Form Referrals: Carolina Lorenzana [ NON-[facility] STAFF PHYSICIAN] - 09/23/18 10:55 am Activity:: rest, no strenuous activity. Equipment/Supplies:: No Equipment Needed Diet:: As Tolerated Discharge Orders Discharge Orders: Discharge Order (Routine); Ordered 09/09/18 Ordered By: Sara Alvarado Other Ambulatory Orders: NM MPI rest & stress grp (Routine) Location: Determined by Patient Ordered By: Sara Alvarado Exam Narrative Exam Narrative: General: Awake, alert and oriented. Pleasant and cooperative, sitting in bed in no acute distress. HEENT: normocephalic, atraumatic, pupils equal and round, mucous membranes moist. Neck: supple, no JVD. Cardiovascular: heart has regular rate and rhythm, no murmur, gallop or rub. Respiratory: respirations even and unlabored, lungs clear to auscultation throughout. GI: abdomen soft, nontender, nondistended, with normoactive bowel sounds throughout. Extremities: well perfused without clubbing, cyanosis or edema. DS: Data Vitals/I&O Vitals and I&O: Vital Signs Temperature 36.2 C L 09/09/18 07:40 Temperature Source Tympanic 09/09/18 07:40 Pulse 71 09/09/18 07:40 Pulse Rhythm Regular 09/09/18 08:10 Pulse 69 09/08/18 00:01 Respiratory Rate 18 09/09/18 07:40 Respiratory Effort Non-Labored 09/09/18 08:10 Respiratory Depth Normal 09/09/18 08:10 Respiratory Pattern Normal 09/09/18 08:10 Blood Pressure 156/80 H 09/09/18 07:40 Blood Pressure Mean 76 09/08/18 00:00 Blood Pressure Position Sitting 09/07/18 21:47 Pulse Oximetry 96 09/09/18 07:40 Oxygen Delivery Method Room Air 09/09/18 07:40 Oxygen Flow Rate 0 09/09/18 07:40 Pain Level 0 09/09/18 07:40 Comment 09/09/18 03:45 Intake & Output 09/08/18 09/08/18 09/09/18 11:59 23:59 11:59 Intake Total 480 / 970 490 / 970 120 / 120 Output Total 700 / 700 1700 / 1700 Balance -220 / 270 490 / 270 -1580 / -1580 Weight 70.307 kg 71.214 kg Intake: Oral 480 / 970 490 / 970 120 / 120 Output: Urine 700 / 700 1700 / 1700 Other: Urine Color Yellow Light Gita Urine Appearance Clear Clear Clear Urine Odor Normal Stool Size Moderate Stool Characteristics Formed Voiding Methods Urinal Toilet Urinal Completed studies during hospitalization [Text1]: 09/07/18: PA AND LATERAL CHEST: The heart is normal in size. The lungs are clear. The mediastinal structures and pleura appear intact. CONCLUSION: Normal chest. No evidence of acute cardiopulmonary disease. Labs on day of discharge: Labs from last 24 hours 09/09/18 05:47 Triglycerides 138 Total Cholesterol 207 H LDL Cholesterol Direct 138 H HDL Cholesterol 43 PFSH Medical History Chest pain (Acute) Obstructive sleep apnea (Chronic) Diabetes mellitus (Chronic) HTN (hypertension) (Chronic) Acquired deviated nasal septum (Chronic 09/24/14) Allergic rhinitis (Chronic 03/12/14) Allergic rhinitis due to other allergen (Chronic 04/09/14) Mass of neck (Resolved 08/28/13) Neoplasm of skin (Resolved 07/16/14) Postnasal drip (Chronic 03/12/14) Sensorineural hearing loss, bilateral (Chronic 07/08/15) Thyroid nodule (Inactive 08/28/13) Allergic rhinitis due to pollen (Inactive) Surgical History H/O umbilical hernia repair (Acute) History of tonsillectomy (Chronic) S/P cholecystectomy (Inactive) Social History household members: spouse current occupational status: retired 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
[2018-09-09 13:47] VITALS: PULSE 72
--- NOTE | 2018-09-09 17:02 | PDOC.CMDIS ---
LACE Index Scoring Tool - Questions: Length of Stay (in days): 3 Acuity (Admit via E.D.?): Yes Comorbidities: Diabetes w/o Complication E.D. Visits: 2 - Answers: Total Score: 9 Risk of Readmission: Low Risk Care Management Discharge Reason for Hospitalization: Chest Pain R/O PA Discharge Plan: Due to stress test not being available today; Jorge will be discharged home with outpatient follow up for stress test and new prescriptions for nitro and atorvastatin. He will transport via private vehicle with his . Patient/Family Education Needs: Review of discharge instructions, discuss Ask Me Three.
--- NOTE | 2018-09-09 17:07 | CMDISCH_ITS ---
LACE Index Scoring Tool - Questions: Length of Stay (in days): 3 Acuity (Admit via E.D.?): Yes Comorbidities: Diabetes w/o Complication E.D. Visits: 2 - Answers: Total Score: 9 Risk of Readmission: Low Risk Care Management Discharge Reason for Hospitalization: Chest Pain R/O HI Discharge Plan: Due to stress test not being available today; Jorge will be discharged home with outpatient follow up for stress test and new prescriptions for nitro and atorvastatin. He will transport via private vehicle with his . Patient/Family Education Needs: Review of discharge instructions, discuss Ask Me Three.
== END 2018-09-09 14:29 | disposition home or self-care (01) ==
LOC: ER 23:21 → MS 09-08 00:33
PROVIDERS: Nurse Practitioner; Admitting Provider Family Medicine; Emergency Provider Emergency Medicine; PCP Nurse Practitioner Family; Visit Provider Internal Medicine
DX: R07.9 Chest pain, unspecified (principal); G47.33 Obstructive sleep apnea (adult) (pediatric); F41.9 Anxiety disorder, unspecified; I10 Essential (primary) hypertension; E11.9 Type 2 diabetes mellitus without complications; Z79.84 Long term (current) use of oral hypoglycemic drugs; E78.00 Pure hypercholesterolemia, unspecified; K21.9 Gastro-esophageal reflux disease without esophagitis
CPT/HCPCS: 36415; 80048; 80053; 80061; 83721; 93005; 99222; 99232; 99239; 99285; J1650; 71046; 83036; 83735; 84484; 85025; 93010; 99219; 99225; G0378

== ENCOUNTER 2018-09-12 00:07 | Outpatient (CLI) | payer OTHER, SELFPAY ==
--- NOTE | 2018-09-12 12:21 | MERGEMPI_ITS ---
*[facility]* *[facility]* [address] [place] [address] Myocardial Perfusion Imaging - SPECT David protocol Date of study: 09/12/2018 *PATIENT PRESENTATION* Height: 165.1cm (65in) Blood Pressure: Weight: 68.2kg (150lb) BSA: 1.78m^2 Referring physician: Sara Alvarado Ordering physician: Carolina Lorenzana Impressions: Normal perfusion by Tc99m Sestamibi Imaging. Summary: 1. Myocardial perfusion imaging: No myocardial perfusion defects noted. 2. The calculated left ventricular ejection fraction after stress: 87%. 3. Stress ECG conclusions: Duran treadmill score: 6. This score predicts a low risk of cardiac events. 4. Stress: The target heart rate was achieved. Indication: R07.9. History: REASON FOR VISIT: NON-RADIATING LEFT CHEST PAIN WITHOUT ANY ASSOCIATED SYMPTOMS. THIS WAS RELIEVED BY NITROGLYCERIN. PT WAS ADMITTED RECENTLY TO THE HOSPITAL FOR OVERNIGHT OBSERVATION. HE RULED OUT FOR MYOCARDIAL INFARCTION AND WAS DISCHARGED. HE STATES HE HAS HAD A FEW TWINGES SINCE HIS ADMISSION WHILE STILL IN THE HOSPITAL, BUT NO FURTHER CHEST PAIN ISSUES SINCE HIS DISCHARGE. Risk factors: Hypertension. Diabetes mellitus. Dyslipidemia. ALLERGIES: LISINOPRIL. AUGMENTIN. MEDICATIONS: ATORVASTATIN 20 MG Q EVENING. METOFORMIN 500 MG DAILY. NITROGLYCERIN 0.4 MG SL PRN. OMEPRAZOLE 40 MG DAILY. ASPIRIN 81 MG DAILY. ATENOLOL 25 MG DAILY. FLUOXETINE 20 MG DAILY. Imaging Technique: Protocol: David protocol. Acquisition: Gated SPECT; 1 day - rest/stress. The patient was imaged in the supine position. Attenuation correction used. Isotope administration: - Rest. Tc[99m]-sestamibi. Dose: 11.3mCi. Injection time: 08:45 AM. Injection to stress time: 00:45. - Stress. Tc[99m]-sestamibi. Dose: 27.2mCi. Injection time: 11:40 AM. 1-2 min before end of exercise Baseline ECG: SINUS RHYTHM. HR 66 BPM. Stress protocol: + +---+ + !Stage !HR !BP (mmHg) ! + +---+ + !Baseline supine !66 !150/78 (102)! + +---+ + !Baseline standing !86 !148/76 (100)! + +---+ + !Stage I; 1.7mph, 10degrees; 3 min !121!166/82 (110)! + +---+ + !Stage II; 2.5mph, 12degrees; 3 min!132!170/84 (113)! + +---+ + !Peak stress !133! ! + +---+ + !Immediate post stress !---!172/68 (103)! + +---+ + !Recovery; 1 min !82 ! ! + +---+ + !Recovery; 3 min !79 !136/68 (91) ! + +---+ + !Recovery; 6 min !87 !146/70 (95) ! + +---+ + * Stress results: Maximal heart rate during stress was 133bpm (90% of maximal predicted heart rate). The maximal predicted heart rate was 148bpm. The target heart rate was achieved. The rate-pressure product for the peak heart rate and blood pressure was 10964zw Hg/min. Stress ECG: TREADMILL PORTION OF STRESS TEST ENDED IN 6 MINUTES DUE TO FATIGUE AND SHORTNESS OF BREATH. NORMAL HEART RATE AND BLOOD PRESSURE RESPONSE TO EXERCISE. MAX HR = 133 % OF TARGET = 89 RARE PVC APPROXIMATE METS ACHIEVED = 7.05 NO ANGINA NO SIGNIFICANT ST SEGMENT CHANGES. MILDLY DIMINISHED FUNCTIONAL CAPACITY. Duran treadmill score: 6. This score predicts a low risk of cardiac events. Myocardial perfusion: Imaging information: gated. No myocardial perfusion defects noted. Ventricular Function (Wall Motion): The calculated left ventricular ejection fraction after stress: 87%. Study data: Kris Weiner MD supervised and was readily available during the procedure. This study was interpreted by [facility]. Study status: Routine. Consent: The risks, benefits, and alternatives to the procedure were explained to the patient and informed consent was obtained. Procedure: Initial setup. A baseline ECG was recorded. Surface ECG leads and manual cuff blood pressure measurements were monitored. Heart sounds: Normal. Lung sounds: Normal. Treadmill exercise testing was performed using the David protocol. Study completion: All catheters inserted during the procedure were removed. The patient tolerated the procedure well and was discharged from the lab. Discharge: The patient left the laboratory in stable condition. Birthdate: Patient birthdate: 1945. Sex: Gender: male. Study date: Study date: 09/12/2018. Study time: 12:21 PM. Electronically signed by Kris Weiner MD 09/12/2018 16:45
== END 2018-09-12 00:27 ==
PROVIDERS: PCP Nurse Practitioner Family; Visit Provider Family Medicine
DX: R07.9 Chest pain, unspecified (principal); I10 Essential (primary) hypertension; E11.9 Type 2 diabetes mellitus without complications; E78.5 Hyperlipidemia, unspecified
CPT/HCPCS: 78452; 93016; 93018; 93017

== ENCOUNTER 2019-04-26 09:12 | Outpatient (REF) | payer OTHER, SELFPAY ==
[2019-04-26 12:35] LABS: ALT 29 U/L (12-78); AST 15 U/L (15-37); Albumin 3.8 g/dL (3.4-5.0); Alkaline Phosphatase 112 U/L (46-116); Anion Gap 7.5 mmol/L (3-11); BUN 18 mg/dL (7-18); Bilirubin, Total 0.7 mg/dL (0.2-1.0); CO2 30.5 mmol/L (21.0-32.0); CREATININE 1.07 mg/dL (0.70-1.30); Calcium 9.1 mg/dL (8.5-10.1); Calculated LDL 71 mg/dL; Chloride 103 mmol/L (98-107); Cholesterol 137 mg/dL (50-200); Glucose 129 mg/dL (70-100); HDL Cholesterol 44 mg/dL (40-60); Potassium 4.8 mmol/L (3.5-5.1); Sodium 141 mmol/L (136-145); Triglyceride 110 mg/dL (30-150)
[2019-04-26 12:54] LABS: Hemoglobin A1C 7.1 % (4.5-6.2)
== END 2019-04-26 09:32 ==
LOC: NCHCN 09:12
PROVIDERS: PCP Nurse Practitioner Family; Visit Provider Family Medicine
DX: E11.9 Type 2 diabetes mellitus without complications (principal); I10 Essential (primary) hypertension; E78.5 Hyperlipidemia, unspecified
CPT/HCPCS: 80053; 80061; 83721; 83036

== ENCOUNTER 2020-05-03 01:02 | Emergency (ER) | payer OTHER, SELFPAY ==
[2020-05-03 01:07] VITALS: BP 166/87; PULSE 66; RESP 16; TEMP 36.6; O2SAT 96
--- NOTE | 2020-05-03 01:15 | NUR.NOTE ---
airway patent. no tongue swelling.
--- NOTE | 2020-05-03 01:27 | ED.GENADUL_ITS ---
Discharge Plan Disposition Patient Disposition: HOME Condition: Good Discharge Details Chief Complaint: Allergic Clinical Impression: Swelling of upper lip Primary Care Provider: Jazzy Bhardwaj ED Provider: Jorge Rubio [place] Meds and New Rx's Prescriptions: New prednisone 20 mg tablet 40 mg PO DAILY Qty: 8 RF: 0 Continued fluoxetine 20 MG capsule 20 mg PO QAM RF: 0 atenolol 25 MG tablet 25 mg PO DAILY RF: 0 aspirin [Aspir-Low] 81 MG tablet,delayed release (DR/EC) 81 mg PO DAILY RF: 0 acetaminophen [Tylenol] 325 mg Tablet 650 mg PO Q6H PRN PRNQty: 0 RF: 0 nitroglycerin [Nitrostat] 0.4 mg Tablet, Sublingual 0.4 mg Sublingual Q5 MIN PRN X3 PRN (Reason: chest pain) Qty: 3 RF: 0 alum-mag hydroxide-simeth [Mag-Al Plus] 200-200-20 mg/5 mL Suspension 30 ml PO Q2H PRN PRNQty: 0 RF: 0 omeprazole 40 mg capsule,delayed release(DR/EC) 40 mg PO DAILY Qty: 30 RF: 0 atorvastatin 20 mg tablet 20 mg PO QPM Qty: 30 RF: 0 metformin 1,000 mg tablet 500 mg PO DAILY RF: 0 Discharge Instructions Additional Instructions: At this time it is difficult to say whether this is true angioedema, cold sore, minor lip swelling. Reasonable to continue Benadryl for a day or 2. Prescription for prednisone so that if the lip becomes swollen like previously you may start taking this. You should follow-up with primary care next week if you require the prednisone. You should return to ED if your swelling progresses and involves both lips, tongue, throat. Referrals: Jazzy Bhardwaj [Primary Care Provider] - Medical Decision Making Patient presents with mild swelling of the upper lip. Previous history of angioedema but not currently on lisinopril. Had small area of pruritic rash associated with the lip swelling. Took Benadryl. Lip and oropharynx otherwise normal. Question mild redness/vesicle on the vermilion border where the swelling is starting. Unclear whether this could be slight allergic reaction versus cold sore. Would recommend taking Benadryl for day or 2. If no cold sore eruptions and lip becomes swollen like previous angioedema start prednisone which he has been given a prescription for. Follow-up with primary care next week if he requires the prednisone. Return to ED for significantly worsening swelling especially if it involves both lips, tongue, throat, any difficulty breathing or other concerns. Medical Records Medical records reviewed: Yes I reviewed the patient's medical records. HPI General Mode of arrival: ambulatory . Date/Time Provider Initiated Documentation: 05/03/20 01:27 . Limitations to Documentation: no limitations . Information obtained by: patient and RN notes reviewed . HPI Narrative: Patient presents to ED with some swelling to his upper lip. He had previously had angioedema few years ago and his lisinopril was discontinued. Since then he has had no issues until tonight. He is on no new medications. He had some frozen chicken tenders which he has not had previously but otherwise no new food. He had small area of pruritus with red area on his left buttocks around the same time that the lip began to swell. He took 50 mg of Benadryl. He is come in for evaluation. He has no pruritus or rash currently. He has no difficulty breathing. His left has not progressed and is only mildly swollen. Related Data Home Medications Medication Instructions Recorded Confirmed aspirin [Aspir-Low] 81 mg PO DAILY 06/20/13 05/03/20 atenolol 25 mg PO DAILY 06/20/13 05/03/20 fluoxetine 20 mg PO QAM 06/20/13 05/03/20 acetaminophen [Tylenol] 650 mg PO Q6H PRN PRN #0 tab 09/09/18 05/03/20 alum-mag hydroxide-simeth [Mag-Al 30 ml PO Q2H PRN PRN #0 ml 09/09/18 05/03/20 Plus] atorvastatin 20 mg PO QPM #30 tab 09/09/18 05/03/20 nitroglycerin [Nitrostat] 0.4 mg SUBLINGUAL Q5 MIN PRN X3 09/09/18 05/03/20 PRN #3 tab omeprazole 40 mg PO DAILY #30 cap 09/09/18 05/03/20 metformin 500 mg PO DAILY 05/03/20 05/03/20 prednisone 40 mg PO DAILY #8 tab 05/03/20 Previous Rx's Medication Instructions Recorded acetaminophen [Tylenol] 650 mg PO Q6H PRN PRN #0 tab 09/09/18 alum-mag hydroxide-simeth [Mag-Al 30 ml PO Q2H PRN PRN #0 ml 09/09/18 Plus] atorvastatin 20 mg PO QPM #30 tab 09/09/18 nitroglycerin [Nitrostat] 0.4 mg SUBLINGUAL Q5 MIN PRN X3 09/09/18 PRN #3 tab omeprazole 40 mg PO DAILY #30 cap 09/09/18 prednisone 40 mg PO DAILY #8 tab 05/03/20 Allergies Allergy/AdvReac Type Severity Reaction Status Date / Time amoxicillin trihydrate Allergy Intermediate Hives Unverified 06/20/13 16:39 [From Augmentin] potassium clavulanate Allergy Intermediate Hives Unverified 06/20/13 16:39 [From Augmentin] lisinopril AdvReac Unverified 09/07/18 22:53 General Stated Complaint: Allergic LUCRECIA: 3 Review of Systems Constitutional Constitutional: Denies fever(s) ENT Ears, Nose, Mouth, and Throat: Denies dysphagia, Denies facial pain, Reports lip swelling, Denies sore throat, Denies throat swelling and Denies tongue swelling Cardiovascular Cardiovascular: Denies dyspnea Respiratory Respiratory: Denies cough and Denies dyspnea Gastrointestinal Gastrointestinal: Denies dysphagia, Denies diarrhea, Denies nausea and Denies vomiting Integumentary/Breasts Skin/Breast: Reports rash Allergic/Immunologic Allergic/Immunologic: Reports lip swelling, Denies throat swelling and Denies tongue swelling [facility] Medical History Acquired deviated nasal septum (Chronic 09/24/14) Allergic rhinitis (Chronic 03/12/14) Diabetes mellitus (Chronic) HTN (hypertension) (Chronic) Mass of neck (Resolved 08/28/13) resolved 10/30/13 Dr. Bhakta Neoplasm of skin (Resolved 07/16/14) Obstructive sleep apnea (Chronic) On CPAP?12 cm of H2O Sensorineural hearing loss, bilateral (Chronic 07/08/15) Thyroid nodule (Inactive 08/28/13) Surgical History H/O umbilical hernia repair (Acute) History of tonsillectomy (Chronic) S/P cholecystectomy (Inactive) Social History Smoking/Tobacco Use Status: Never Alcohol Intake: current Alcohol Intake frequency: holidays/special occasions only Drug use: Never Substance use type: does not use Household members: spouse current occupation: Part-time work at a radio station Do you feel safe at home: Yes Do you feel safe in your relationship?: Yes Exam Const General: cooperative, comfortable and no acute distress Orientation: alert and oriented x3 HENMT Head: normocephalic and atraumatic General nose exam: external nose normal Face and sinus: normal facial exam Mouth: tongue normal, oropharynx normal, moist mucous membranes abnormal and lip abnormal (Mild swelling upper lip just right of philtrum, ? small vesicle) Eyes Eyelids: eyelids normal Conjunctivae: conjunctivae normal Neck Neck: trachea midline and supple Resp Effort & Inspection: normal respiratory effort and no stridor Auscultation: clear to auscultation bilaterally and no wheezes Skin Rashes: no rashes Course Vital Signs Vital signs: Vital Signs Temperature 97.9 F 05/03/20 01:07 Pulse 66 05/03/20 01:07 Respiratory Rate 16 05/03/20 01:07 Blood Pressure 166/87 H 05/03/20 01:07 Pulse Oximetry 96 05/03/20 01:07 Temperature 97.9 F 05/03/20 01:07 Temperature Source Skin 05/03/20 01:07 Pulse 66 05/03/20 01:07 Respiratory Rate 16 05/03/20 01:07 Respiratory Effort 05/03/20 01:13 Respiratory Pattern Normal 05/03/20 01:13 Blood Pressure 166/87 H 05/03/20 01:07 Blood Pressure Position Sitting 05/03/20 01:07 Pulse Oximetry 96 05/03/20 01:07 Oxygen Delivery Method Room Air 05/03/20 01:07 Oxygen Flow Rate 0 05/03/20 01:07 Pain Level 0 05/03/20 01:07
== END 2020-05-03 01:30 | disposition home or self-care (01) ==
PROVIDERS: Emergency Provider Emergency Medicine; PCP Nurse Practitioner Family
DX: R22.0 Localized swelling, mass and lump, head (principal); R21 Rash and other nonspecific skin eruption; E11.9 Type 2 diabetes mellitus without complications; Z79.84 Long term (current) use of oral hypoglycemic drugs; I10 Essential (primary) hypertension
CPT/HCPCS: 99283

== ENCOUNTER → 2020-08-28 19:17 | Outpatient (REF) | payer OTHER, SELFPAY ==
[2020-08-28 22:43] LABS: COMMENT (LAB VIEW ONLY) 160.01 mg/dL; Microalb ug/mg Crea 6.9 ug/mg Cr
== END ==
LOC: NCHCN 19:17
PROVIDERS: PCP Nurse Practitioner Family; Visit Provider Family Medicine
DX: E11.9 Type 2 diabetes mellitus without complications (principal)
CPT/HCPCS: 82043; 82570

== ENCOUNTER 2020-12-13 11:59 | Outpatient (REF) | payer OTHER, SELFPAY ==
[2020-12-14 16:54] LABS: COVID-19 RT-PCR UVMMC Result Negative (Negative)
== END 2020-12-13 12:00 | disposition home or self-care (01) ==
LOC: NCHCN 11:59
PROVIDERS: PCP Nurse Practitioner Family; Visit Provider Family Medicine
DX: Z20.822 Contact with and (suspected) exposure to COVID-19 (principal)
CPT/HCPCS: U0003

== ENCOUNTER 2021-04-22 13:57 | Emergency (ER) | payer OTHER, SELFPAY ==
[2021-04-22] VITALS (17 sets, daily range): BP systolic 140–205; BP diastolic 77–97; PULSE 60–92; RESP 13–26; TEMP 36.2; O2SAT 96–98
--- NOTE | 2021-04-22 13:53 | W.ED.GENAD ---
Discharge Plan Disposition Patient Disposition: HOME Condition: Improving Discharge Details Clinical Impression: Ureterolithiasis Primary Care Provider: Jazzy Bhardwaj ED Provider: Gill Dugan Home Meds and New Rx's Prescriptions: New tamsulosin [Flomax] 0.4 mg capsule 0.4 mg PO DAILY Qty: 10 RF: 0 oxycodone 5 mg tablet 5 mg PO Q6H PRN (Reason: pain) Qty: 5 RF: 0 Continued fluoxetine 20 MG capsule 20 mg PO QAM RF: 0 atenolol 25 MG tablet 25 mg PO DAILY RF: 0 aspirin [Aspir-Low] 81 MG tablet,delayed release (DR/EC) 81 mg PO DAILY RF: 0 acetaminophen [Tylenol] 325 mg Tablet 650 mg PO Q6H PRN PRNQty: 0 RF: 0 nitroglycerin [Nitrostat] 0.4 mg Tablet, Sublingual 0.4 mg Sublingual Q5 MIN PRN X3 PRN (Reason: chest pain) Qty: 3 RF: 0 alum-mag hydroxide-simeth [Mag-Al Plus] 200-200-20 mg/5 mL Suspension 30 ml PO Q2H PRN PRNQty: 0 RF: 0 omeprazole 40 mg capsule,delayed release(DR/EC) 40 mg PO DAILY Qty: 30 RF: 0 atorvastatin 20 mg tablet 20 mg PO QPM Qty: 30 RF: 0 metformin 1,000 mg tablet 500 mg PO DAILY RF: 0 Discharge Instructions Instructions: Kidney Stones (ED) Additional Instructions: Drink plenty of fluids and get plenty of rest. Alternate tylenol and motrin as needed and directed for pain. Take the Flomax daily as directed. Take the oxycodone for pain not relieved with Tylenol or ibuprofen. Take the Zofran as needed and directed for nausea and vomiting. Your prescriptions have been sent electronically to your pharmacy. Call the pharmacy to make sure your prescriptions are ready before pickup. Take the prescriptions as directed. Call the urologist Dr. Clay's office tomorrow morning to schedule a follow-up appointment for reevaluation. Return immediately to the emergency department if you develop any worsening or new concerning symptoms such as fever, worsening pain, persistent vomiting or any other concerns. Referrals: Edvin Clay MD [ [facility] STAFF PHYSICIAN] - Discharge Data Discharge Physician: Gill Dugan Medical Decision Making 76-year-old male with a history of kidney stones presents with left flank and left lower quadrant abdominal pain and urinary urgency since this morning. Patient appears comfortable and nontoxic. No CVA tenderness. No abdominal tenderness. Normal exam. Suspect kidney stone. Will place an IV and obtain screening labs, urinalysis and CT renal colic. Will give a dose of Toradol, Zofran and fluids and reassess. Labs and imaging reviewed. Normal white blood cell count. Normal renal function. Urinalysis notes blood but no evidence of infection. CT notes 1 to 2 mm left UVJ ureteral calculus with mild left hydronephrosis. Patient reassessed and he states he feels much better and feels good to go home. He was given a dose of Flomax here and pain and nausea medication to go. Prescriptions sent electronically to his pharmacy. Patient is placed on urology follow-up list. Usual and customary return precautions given prior to discharge. Medical Records Medical records reviewed: Yes I reviewed the patient's medical records. Imaging Data Radiologic Study: Radiologist's impression: CT RENAL COLIC WO CLINICAL HISTORY: L flank pain, LLQ abd pain. TECHNIQUE: Imaging Protocol: Axial computed tomography images with coronal and sagittal reformatted images were created and reviewed. CONTRAST MATERIAL: Noncontrast COMPARISON: CT RENAL COLIC WO CONTRAST from 08/11/2011 CT RENAL COLIC WO CONTRAST from 08/11/2011 CT NECK WITH CONTRAST from 08/16/2013 CT NECK WITH CONTRAST from 08/16/2013 FINDINGS: There is a moderate size hiatal hernia, not fully included on the exam. Lung bases are clear. Liver shows fatty infiltration. Patient is status post cholecystectomy. No biliary dilatation. The spleen, adrenals and pancreas are unremarkable. There is mild left hydronephrosis. There is a 1-2 millimeter stone seen in the left side of the bladder versus ureterovesical junction. Additional punctate left renal stone is seen. Urinary bladder is nearly empty. The prostate is mildly enlarged. There is no bowel dilatation or inflammatory change. There is sigmoid diverticulosis. Prior hernia repair in the region of the umbilicus. Degenerative changes are noted in the lumbar spine from L3-4 through L5-S1. Small bilateral fatty containing inguinal hernias. IMPRESSION: Mild left hydronephrosis secondary to a 1-2 millimeter stone at the ureterovesical junction versus adjacent portion of the bladder. Lab Data Lab results reviewed: Yes I reviewed the patient's lab results. Labs: Laboratory Tests Range/Units 04/22/21 04/22/21 04/22/21 13:54 13:54 14:03 WBC (4.4-10.8) 10^3/uL 9.22 RBC (4.36-5.78) 10^6/uL 4.35 L Hgb (13.5-17.5) g/dL 13.3 L Hct (40.0-50.0) % 39.6 L MCV (80-95) fL 91.0 MCH (27.0-33.0) pg 30.6 MCHC (32.0-36.0) % 33.6 RDW (11.8-14.1) % 12.4 Plt Count (130-400) 10^3/uL 261 MPV (8.0-11.0) fL 9.1 Immature Gran % 0.3 Neutrophils % 78.4 Lymphocytes % 13.3 Monocytes % 7.5 Eosinophils % 0.1 Basophils % 0.4 Nucleated RBC % % 0 Absolute Neutrophils (1.2-6.7) 10^3/uL 7.22 H Absolute Lymphocytes (1.2-3.4) 10^3/uL 1.23 Absolute Monocytes (0.1-0.8) 10^3/uL 0.69 Absolute Eosinophils (0.0-0.7) 10^3/uL 0.01 Absolute Basophils (0.0-0.2) 10^3/uL 0.04 Sodium (136-145) mmol/L 139 Potassium (3.5-5.1) mmol/L 4.0 Chloride (98-107) mmol/L 104 Carbon Dioxide (21.0-32.0) mmol/L 24.6 Anion Gap (3-11) mmol/L 10.4 BUN (7-18) mg/dL 15 Creatinine (0.70-1.30) mg/dL 1.0 Estimated GFR/1.73 m2 (mL/min/1.73m2) >= 60.00 Glucose (74-106) mg/dL 138 H Calcium (8.5-10.1) mg/dL 9.1 Total Bilirubin (0.2-1.0) mg/dL 0.5 AST (15-37) U/L 20 ALT (16-63) U/L 35 Alkaline Phosphatase (46-116) U/L 97 Total Protein (6.4-8.2) g/dL 7.0 Albumin (3.4-5.0) g/dL 3.7 Lipase (73-393) U/L 73 Urine Color (Yellow) Yellow Urine Clarity (Clear) Clear Urine pH (5-8) 5.0 Ur Specific [place] (1.005-1.025) 1.025 Urine Protein (Negative) mg/dL Negative Urine Ketones (Negative) mg/dL Negative Urine Blood (Negative) Moderate H Urine Nitrite (Negative) Negative Urine Bilirubin (Negative) Negative Urine Urobilinogen (Up TO 0.2) EU/dL 0.2 Ur Leukocyte Esterase (Negative) Negative Urine RBC (0-2) HPF 20-50 H Urine WBC (0-5) HPF 0-2 Ur Epithelial Cells (Negative) HPF Rare Urine Crystals (Negative) HPF Negative Urine Bacteria (Negative) HPF Rare Urine Casts (Negative) LPF 0-2 Coarse Granular Urine Mucus (Negative) Moderate Ur Culture Indicated? No Urine Glucose (Negative) mg/dL 250 H HPI General Mode of arrival: ambulatory. Date/Time Provider Initiated Documentation: 04/22/21 14:01. Limitations to Documentation: no limitations. Information obtained by: patient. HPI Narrative: Patient is a 76-year-old male with a previous history of kidney stones who presents with left flank pain since this morning, now resolved and presenting with left lower quadrant abdominal pain for the last few hours. He states the pain is aching and sharp. He states the pain was 8/10 and is currently 4/10. He has not taken any medication for pain. He denies any aggravating or alleviating factors. He does admit to urinary urgency but denies any dysuria or hematuria. He states she did have urgency to have a bowel movement as well today and states he had a few loose bowel movements but denies any watery or bloody diarrhea. He admits to dry heaves and nausea but denies any vomiting or fever. Related Data Home Medications Medication Instructions Recorded Confirmed aspirin [Aspir-Low] 81 mg PO DAILY 06/20/13 04/22/21 atenolol 25 mg PO DAILY 06/20/13 04/22/21 fluoxetine 20 mg PO QAM 06/20/13 04/22/21 acetaminophen [Tylenol] 650 mg PO Q6H PRN PRN #0 tab 09/09/18 04/22/21 alum-mag hydroxide-simeth [Mag-Al 30 ml PO Q2H PRN PRN #0 ml 09/09/18 04/22/21 Plus] atorvastatin 20 mg PO QPM #30 tab 09/09/18 04/22/21 nitroglycerin [Nitrostat] 0.4 mg SUBLINGUAL Q5 MIN PRN X3 09/09/18 04/22/21 PRN #3 tab omeprazole 40 mg PO DAILY #30 cap 09/09/18 04/22/21 metformin 500 mg PO DAILY 05/03/20 04/22/21 oxycodone 5 mg PO Q6H PRN #5 tab 04/22/21 tamsulosin [Flomax] 0.4 mg PO DAILY #10 cap 04/22/21 Previous Rx's Medication Instructions Recorded acetaminophen [Tylenol] 650 mg PO Q6H PRN PRN #0 tab 09/09/18 alum-mag hydroxide-simeth [Mag-Al 30 ml PO Q2H PRN PRN #0 ml 09/09/18 Plus] atorvastatin 20 mg PO QPM #30 tab 09/09/18 nitroglycerin [Nitrostat] 0.4 mg SUBLINGUAL Q5 MIN PRN X3 09/09/18 PRN #3 tab omeprazole 40 mg PO DAILY #30 cap 09/09/18 oxycodone 5 mg PO Q6H PRN #5 tab 04/22/21 tamsulosin [Flomax] 0.4 mg PO DAILY #10 cap 04/22/21 Allergies Allergy/AdvReac Type Severity Reaction Status Date / Time amoxicillin trihydrate Allergy Intermediate Hives Unverified 04/22/21 13:44 [From Augmentin] potassium clavulanate Allergy Intermediate Hives Unverified 04/22/21 13:44 [From Augmentin] lisinopril AdvReac Unverified 04/22/21 13:44 General Stated Complaint: Abd Prob LUCRECIA: 3 Review of Systems All systems reviewed & are unremarkable except as noted in HPI and below Constitutional Constitutional: Reports as per HPI, Denies chills and Denies fever(s) Eyes Eyes: Denies blurry vision ENT Ears, Nose, Mouth, and Throat: Denies dizziness, Denies sore throat and Denies throat swelling Cardiovascular Cardiovascular: Denies chest pain and Denies dyspnea Respiratory Respiratory: Denies cough and Denies dyspnea Gastrointestinal Gastrointestinal: Reports abdominal pain, Denies diarrhea, Reports nausea and Denies vomiting Genitourinary Genitourinary: Denies hematuria, Denies dysuria, Reports flank pain and Reports urinary urgency Musculoskeletal Musculoskeletal: Denies back pain and Denies numbness Integumentary/Breasts Skin/Breast: Denies lesions and Denies rash Neurologic Neurologic: Denies dizziness, Denies localized weakness and Denies numbness Allergic/Immunologic Allergic/Immunologic: Denies throat swelling [facility] Medical History (Updated 04/22/21 @ 15:35 by Gill Dugan DO) Acquired deviated nasal septum (09/24/14) Allergic rhinitis (03/12/14) Diabetes mellitus HTN (hypertension) Mass of neck (08/28/13) resolved 10/30/13 Dr. 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 Do you feel safe at home: Yes Do you feel safe in your relationship?: Yes Exam Const General: cooperative, healthy appearing and no acute distress [facility] Head: normal to inspection Face and sinus: normal facial exam Eyes General: appearance normal, both eyes and all related structures EOM: EOM intact bilaterally Neck Neck: normal visual inspection and No submandibular swelling Lymphatic: no lymphadenopathy noted Chest Chest: normal inspection of the chest and no tenderness Resp Effort & Inspection: normal respiratory effort and able to speak in complete sentences Auscultation: clear to auscultation bilaterally Cardio Rate: regular rate Rhythm: regular rhythm GI Inspection: normal to inspection Palpation: soft, not firm, not rigid and nontender Auscultation: normal bowel sounds Male General Exam: Yes normal external exam Penis: normal penis Scrotum: scrotum normal Testes: normal, no testicular swelling and no testicular tenderness Skin General skin exam: no rashes or lesions noted Neuro General: patient alert, patient awake and patient oriented x3 Cognition: normal cognition Speech: speech normal Motor: muscle tone normal throughout Sensory Exam: no sensory deficits noted Extrem General: normal to inspection, full ROM, capillary refill normal, no calf tenderness bilaterally and no edema Psych Appearance: grossly normal Mental Status: mental status grossly normal Speech and Movement: speech and movement normal Affect: normal affect Course Vital Signs Vital signs: Vital Signs Temperature 97.2 F L 04/22/21 13:39 Pulse 70 04/22/21 13:39 Respiratory Rate 13 04/22/21 13:39 Blood Pressure 205/79 H 04/22/21 13:39 Pulse Oximetry 97 04/22/21 13:39 Temperature 97.2 F L 04/22/21 13:39 Pulse 70 04/22/21 13:39 Respiratory Rate 13 04/22/21 13:39 Respiratory Effort Non-Labored 04/22/21 13:46 Blood Pressure 205/79 H 04/22/21 13:39 Blood Pressure Position Sitting 04/22/21 13:39 Pulse Oximetry 97 04/22/21 13:39 Oxygen Delivery Method Room Air 04/22/21 13:39 Oxygen Flow Rate 0 04/22/21 13:39 Pain Level 5 04/22/21 13:39
[2021-04-22 14:05] LABS: Abs Immature Grans 0.03 10^3/uL (0.0-0.06); Absolute Basophil Count 0.04 10^3/uL (0.0-0.2); Absolute Eosinophil Count 0.01 10^3/uL (0.0-0.7); Absolute Lymphocyte Count 1.23 10^3/uL (1.2-3.4); Absolute Monocyte Count 0.69 10^3/uL (0.1-0.8); Absolute Neutrophil Count 7.22 10^3/uL (1.2-6.7); Basophils % 0.4; Eosinophils % 0.1; HCT 39.6 % (40.0-50.0); HGB 13.3 g/dL (13.5-17.5); Immature Grans % 0.3; Lymphocytes % 13.3; MCH 30.6 pg (27.0-33.0); MCHC 33.6 % (32.0-36.0); MPV 9.1 fL (8.0-11.0); Monocytes % 7.5; Neutrophils % 78.4; Nucleated RBC 0 %; Platelet Count 261 10^3/uL (130-400); RBC 4.35 10^6/uL (4.36-5.78); RDW 12.4 % (11.8-14.1); RDW-SD 41.4 fL; WBC 9.22 10^3/uL (4.4-10.8)
[2021-04-22] MEDS: Normal Saline 1,000 ML 1000 ML IV (14:15)
[2021-04-22 14:16] LABS: Bilirubin Negative (Negative); Blood Moderate (Negative); Clarity Clear (Clear); Glucose 250 mg/dL (Negative); Ketones Negative (Negative); Leukocyte Esterase Negative (Negative); Nitrite Negative (Negative); Specific Gravity 1.025 (1.005-1.025); Urobilinogen 0.2 EU/dL (Up TO 0.2)
[2021-04-22 14:17] LABS: ALT 35 U/L (16-63); AST 20 U/L (15-37); Albumin 3.7 g/dL (3.4-5.0); Alkaline Phosphatase 97 U/L (46-116); Anion Gap 10.4 mmol/L (3-11); BUN 15 mg/dL (7-18); Bilirubin, Total 0.5 mg/dL (0.2-1.0); CO2 24.6 mmol/L (21.0-32.0); Calcium 9.1 mg/dL (8.5-10.1); Chloride 104 mmol/L (98-107); Glucose 138 mg/dL (74-106); Lipase 73 U/L (73-393); Sodium 139 mmol/L (136-145)
[2021-04-22] MEDS: Ketorolac 30 MG/ML VIAL IVP (14:20)
[2021-04-22] MEDS: Ondansetron 4 MG/2 ML VIAL IVP (14:25)
[2021-04-22 14:30] LABS: Bacteria Rare HPF (Negative); Casts 0-2 Coarse Granular LPF (Negative); Crystals Negative HPF (Negative); Epithelial Cells Rare HPF (Negative); Mucus Moderate (Negative); RBC 20-50 HPF (0-2); WBC 0-2 HPF (0-5)
[2021-04-22 14:31] LABS: C & S Indicated? No
--- NOTE | 2021-04-22 14:35 | DI.CT_ITS ---
Exam(s) CT RENAL COLIC WO EXAM: CT RENAL COLIC WO CLINICAL HISTORY: L flank pain, LLQ abd pain. TECHNIQUE: Imaging Protocol: Axial computed tomography images with coronal and sagittal reformatted images were created and reviewed. CONTRAST MATERIAL: Noncontrast COMPARISON: CT RENAL COLIC WO CONTRAST from 08/11/2011 CT RENAL COLIC WO CONTRAST from 08/11/2011 CT NECK WITH CONTRAST from 08/16/2013 CT NECK WITH CONTRAST from 08/16/2013 FINDINGS: There is a moderate size hiatal hernia, not fully included on the exam. Lung bases are clear. Liver shows fatty infiltration. Patient is status post cholecystectomy. No biliary dilatation. The sple en, adrenals and pancreas are unremarkable. There is mild left hydronephrosis. There is a 1-2 kike meter stone seen in the left side of the bladder versus ureterovesical junction. Additional punctate left renal stone is seen. Urinary bladder is nearly empty. The prostate is mildly enlarged. There is no bowel dilatation or inflammatory change. There is sigmoid diverticulosis. Prior hernia repair in the region of the umbilicus. Degenerative changes are noted in the lumbar spine from L3-4 through L5-S1. Small bilateral fatty containing inguinal hernias. IMPRESSION: Mild left hydronephrosis secondary to a 1-2 millimeter stone at the ureterovesical junction versus ad jacent portion of the bladder. RADIATION DOSE DELIVERED: 673.27mGy.cm Total DLP DATA REPOSITORY: All CT scans at this facility are submitted to the National Radiology Data Registry (NRDR) Dose Index Registry (DIR) with the [employer] (A[employer]). RADIATION OPTIMIZATION: All CT scans at this facility use at least one of these dose optimization te chniques: automated exposure control; mA and/or kV adjustment per patient size (includes targeted exa ms where dose is matched to clinical indication); or iterative reconstruction.
[2021-04-22] MEDS: Ondansetron O.D.T. 4 MG TABEF, 3 TABS/BTL PO (15:43)
[2021-04-22] MEDS: Tamsulosin 0.4 MG CAPCR PO (15:44)
--- NOTE | 2021-04-22 17:11 | NUR.NOTE ---
REFERRAL TO [facility]
== END 2021-04-22 16:03 | disposition home or self-care (01) ==
LOC: ER 15:43
PROVIDERS: Emergency Provider Physician Assistant; PCP Nurse Practitioner Family
DX: N20.1 Calculus of ureter (principal); Z87.442 Personal history of urinary calculi
CPT/HCPCS: 36415; 80053; 83690; 96361; 96374; 96375; 99284; 74176; 81003; 81015; 85025; J1885; J2405

== ENCOUNTER 2021-08-21 08:57 | Outpatient (REF) | payer MEDICARE, SELFPAY ==
[2021-08-21 15:24] LABS: ALT 27 U/L (16-63); AST 14 U/L (15-37); Albumin 3.8 g/dL (3.4-5.0); Alkaline Phosphatase 99 U/L (46-116); Anion Gap 7.8 mmol/L (3-11); BUN 15 mg/dL (7-18); Bilirubin, Total 0.4 mg/dL (0.2-1.0); CO2 29.2 mmol/L (21.0-32.0); Calcium 9.3 mg/dL (8.5-10.1); Chloride 106 mmol/L (98-107); Glucose 152 mg/dL (74-106); Potassium 4.5 mmol/L (3.5-5.1); Sodium 143 mmol/L (136-145); Total Protein 6.8 g/dL (6.4-8.2)
[2021-08-21 15:30] LABS: Hemoglobin A1C 6.9 % (<5.7)
[2021-08-21 16:03] LABS: Calculated LDL 44 mg/dL (<100); Cholesterol 111 mg/dL (<200); HDL Cholesterol 49 mg/dL (40-60); Triglyceride 92 mg/dL (<150)
== END 2021-08-21 08:58 | disposition home or self-care (01) ==
LOC: NCHCN 08:57
PROVIDERS: PCP Nurse Practitioner Family; Visit Provider Family Medicine
DX: E11.9 Type 2 diabetes mellitus without complications (principal); I10 Essential (primary) hypertension; E78.5 Hyperlipidemia, unspecified
CPT/HCPCS: 80053; 80061; 83036

== ENCOUNTER 2023-04-07 10:50 | Outpatient (REF) | payer MEDICARE, SELFPAY ==
[2023-04-07 15:02] LABS: Abs Immature Grans 0.01 10^3/uL (0.0-0.06); Absolute Basophil Count 0.03 10^3/uL (0.0-0.2); Absolute Eosinophil Count 0.25 10^3/uL (0.0-0.7); Absolute Lymphocyte Count 1.79 10^3/uL (1.2-3.4); Absolute Monocyte Count 0.67 10^3/uL (0.1-0.8); Absolute Neutrophil Count 2.81 10^3/uL (1.2-6.7); Basophils % 0.5; Eosinophils % 4.5; HGB 13.7 g/dL (13.5-17.5); Immature Grans % 0.2; Lymphocytes % 32.2; MCH 31.1 pg (27.0-33.0); MCHC 34.3 % (32.0-36.0); MCV 91 fL (80-95); MPV 10.1 fL (8.0-11.0); Monocytes % 12.1; Neutrophils % 50.5; Platelet Count 280 10^3/uL (130-400); RBC 4.41 10^6/uL (4.36-5.78); RDW 12.7 % (11.8-14.1); RDW-SD 41.9 fL; WBC 5.56 10^3/uL (4.4-10.8)
[2023-04-07 15:25] LABS: Hemoglobin A1C 7.3 % (<5.7)
== END 2023-04-07 10:51 | disposition home or self-care (01) ==
LOC: NCHCN 10:50
PROVIDERS: PCP Nurse Practitioner Family; Visit Provider Family Medicine
DX: E11.9 Type 2 diabetes mellitus without complications (principal); R53.83 Other fatigue
CPT/HCPCS: 83036; 85025

== ENCOUNTER 2023-11-03 21:02 | Outpatient (REF) | payer MEDICARE, SELFPAY ==
[2023-11-03 21:10] LABS: Abs Immature Grans 0.01 10^3/uL (0.0-0.06); Absolute Basophil Count 0.03 10^3/uL (0.0-0.2); Absolute Eosinophil Count 0.09 10^3/uL (0.0-0.7); Absolute Lymphocyte Count 1.97 10^3/uL (1.2-3.4); Absolute Monocyte Count 0.52 10^3/uL (0.1-0.8); Absolute Neutrophil Count 2.27 10^3/uL (1.2-6.7); Basophils % 0.6; Eosinophils % 1.8; HCT 38.8 % (40.0-50.0); HGB 13.4 g/dL (13.5-17.5); Immature Grans % 0.2; Lymphocytes % 40.3; MCH 30.1 pg (27.0-33.0); MCHC 34.5 % (32.0-36.0); MCV 87 fL (80-95); MPV 9.6 fL (8.0-11.0); Monocytes % 10.6; Neutrophils % 46.5; Platelet Count 238 10^3/uL (130-400); RBC 4.45 10^6/uL (4.36-5.78); RDW 12.3 % (11.8-14.1); RDW-SD 39.7 fL; WBC 4.89 10^3/uL (4.4-10.8)
[2023-11-03 21:15] LABS: ALT 43 U/L (16-63); AST 27 U/L (15-37); Albumin 3.4 g/dL (3.4-5.0); Alkaline Phosphatase 117 U/L (46-116); Anion Gap 8.9 mmol/L (3-11); BUN 8 mg/dL (7-18); Bilirubin, Total 0.9 mg/dL (0.2-1.0); CO2 26.1 mmol/L (21.0-32.0); CREATININE 1.1 mg/dL (0.70-1.30); Calcium 8.6 mg/dL (8.5-10.1); Chloride 105 mmol/L (98-107); Estimated GFR 69.14 (mL/min/1.73m2); Glucose 118 mg/dL (74-106); Potassium 4.1 mmol/L (3.5-5.1); Sodium 140 mmol/L (136-145); Total Protein 6.8 g/dL (6.4-8.2)
== END 2023-11-03 21:03 | disposition home or self-care (01) ==
LOC: NCHCN 21:02
PROVIDERS: PCP Nurse Practitioner Family; Visit Provider Family Medicine
DX: R19.7 Diarrhea, unspecified (principal)
CPT/HCPCS: 80053; 85025

== ENCOUNTER 2023-11-04 15:09 | Outpatient (REF) | payer MEDICARE, SELFPAY | END 2023-11-04 15:10 | disposition home or self-care (01) | LOC: NCHCN 15:09 | PROVIDERS: PCP Nurse Practitioner Family; Visit Provider Family Medicine | DX: R19.7 Diarrhea, unspecified (principal) | CPT/HCPCS: 87329; 83630 ==

== ENCOUNTER 2024-12-20 01:15 | Outpatient (CLI) | payer MEDICARE, SELFPAY ==
--- NOTE | 2024-12-20 | DI.MRI_ITS ---
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 CONTRAST MATERIAL: IV Contrast: 13 mL of Dotarem contrast administered. COMPARISON: CT CT RENAL COLIC WO from 04/22/2021 FINDINGS: Lung bases: There is a moderate size hiatal hernia. Liver: There is normal signal in the liver. No evidence of a hepatic mass. Pancreas: Unremarkable. No evidence of a pancreatic mass or peripancreatic fluid collection. There a re few tiny nonenhancing simple cysts in the pancreas. Gallbladder and Bile Ducts: Status post cholecystectomy. No biliary ductal dilatation is present. Adrenals: No evidence of an adrenal mass. Kidneys: Unremarkable. No evidence of a renal mass or obstruction. Spleen: Unremarkable. Incidental note is made of an accessory spleen. Bowel: There is a duodenal diverticulum adjacent to the head of the pancreas. There is no evidence o f bowel obstruction or bowel wall thickening. Aorta: Unremarkable. Soft Tissues: Unremarkable. Bone: Age-appropriate degenerative changes are seen in the spine. There is an S-type thoracolumbar s coliosis. Lymph Nodes: Unremarkable. IMPRESSION: No evidence of a hepatic metastasis or abdominal metastatic disease. DATA REPOSITORY:
[2024-12-20] MEDS: Gadoterate meglumine 20 ML VIAL 13 ML IVP (08:46)
[2024-12-20] MEDS: Normal Saline - Diluent 50 ML VIAL IJ (08:47)
== END 2024-12-20 01:35 ==
LOC: DI 01:16
PROVIDERS: PCP Nurse Practitioner Family; Visit Provider Family Medicine
DX: C69.31 Malignant neoplasm of right choroid (principal)
CPT/HCPCS: 74183

== ENCOUNTER 2025-01-05 10:45 | Outpatient (REF) | payer MEDICARE, SELFPAY ==
[2025-01-05 15:12] LABS: COMMENT (LAB VIEW ONLY) 193.56 mg/dL; Microalb ug/mg Crea 7.3 ug/mg Cr
== END 2025-01-05 10:46 | disposition home or self-care (01) ==
LOC: NCHCN 10:45
PROVIDERS: PCP Nurse Practitioner Family; Visit Provider Family Medicine
DX: E11.9 Type 2 diabetes mellitus without complications (principal)
CPT/HCPCS: 82043; 82570

== ENCOUNTER 2025-07-16 10:45 | Outpatient (REF) | payer MEDICARE, SELFPAY ==
[2025-07-16 16:12] LABS: HCT 40.6 % (40.0-50.0); HGB 13.6 g/dL (13.5-17.5); MCH 30.0 pg (27.0-33.0); MCHC 33.5 % (32.0-36.0); MCV 89 fL (80-95); MPV 9.8 fL (8.0-11.0); Platelet Count 250 10^3/uL (130-400); RBC 4.54 10^6/uL (4.36-5.78); RDW 12.5 % (11.8-14.1); RDW-SD 41.3 fL; WBC 4.92 10^3/uL (4.4-10.8)
[2025-07-16 16:47] LABS: ALT 30 U/L (16-63); AST 20 U/L (15-37); Albumin 3.6 g/dL (3.4-5.0); Alkaline Phosphatase 113 U/L (46-116); Anion Gap 7.4 mmol/L (3-11); BUN 13 mg/dL (7-18); Bilirubin, Total 0.8 mg/dL (0.2-1.0); CO2 29.6 mmol/L (21.0-32.0); Calcium 9.0 mg/dL (8.5-10.1); Chloride 103 mmol/L (98-107); Cholesterol 124 mg/dL (<200); Glucose 145 mg/dL (74-106); HDL Cholesterol 49 mg/dL (>or=40); Potassium 4.7 mmol/L (3.5-5.1); Sodium 140 mmol/L (136-145); Total Protein 6.9 g/dL (6.4-8.2); Vitamin B12 675 pg/mL (193-986); Vitamin D 25 Total 54 ng/mL (30-100)
== END 2025-07-16 10:46 | disposition home or self-care (01) ==
LOC: NCHCN 10:45
PROVIDERS: PCP Nurse Practitioner Family
DX: N18.2 Chronic kidney disease, stage 2 (mild) (principal); R53.83 Other fatigue; E78.5 Hyperlipidemia, unspecified; I10 Essential (primary) hypertension; D64.9 Anemia, unspecified
CPT/HCPCS: 80053; 80061; 82306; 85027; 82607

== ENCOUNTER → 2025-08-21 00:24 | Outpatient (CLI) | payer MEDICARE, SELFPAY ==
--- NOTE | 2025-08-21 09:30 | DI.US_ITS ---
Exam(s) US HERNIA EXAM: US HERNIA CLINICAL HISTORY: INGUINAL HERNIA RT, W/O OBSTRUCTION OR GANGRENE, K40.90. TECHNIQUE: Ultrasound was performed using standard protocol. COMPARISON: CT CT RENAL COLIC WO from 04/22/2021 FINDINGS: Sonographic assessment utilizing grayscale and color Doppler imaging was performed and targeted to the area of clinical concern. None there carried fat containing right inguinal hernia. There is no evidence of fluid or hyperemia. The neck is measured at 9 millimeters. It was present on prior CT of 2020. IMPRESSION: Fat containing right inguinal hernia. No evidence of complication. DATA REPOSITORY:
== END ==
LOC: DI 00:24
PROVIDERS: PCP Nurse Practitioner Family
DX: K40.90 Unilateral inguinal hernia, without obstruction or gangrene, not specified as recurrent (principal)
CPT/HCPCS: 76857